=== PATIENT | male | born 1950 | race Caucasian/White ===

== ENCOUNTER → 2017-03-05 | Outpatient (CLI) | payer MEDICARE, BC | END | disposition home or self-care (01) | LOC: LABWHC1 08:37 | PROVIDERS: ATTEND Urology | DX: R97.20 Elevated prostate specific antigen [PSA] (principal) | CPT/HCPCS: 36415; 84153 ==

== ENCOUNTER 2020-01-18 19:30 | Inpatient (IN) | payer BC, MEDICARE ==
[2020-01-18] MEDS ORDERED: FAMOTIDINE 20 MG/2 ML VIAL IV STA (20:07)
[2020-01-18] MEDS ORDERED: ONDANSETRON 4 MG/2 ML VIAL IVP STA (20:07)
[2020-01-18] MEDS ORDERED: SODIUM CHLORIDE 0.9% 1,000 ML IV STA ×2 (20:07→21:04)
[2020-01-18] MEDS ORDERED: MORPHINE SULFATE 4 MG/ML SYRINGE IV STA (20:08)
--- NOTE | 2020-01-18 20:10 | ED ---
General Adult HPI - General Chief complaint: Abdominal Pain Stated complaint: Abd Pain Time Seen by Provider: 01/18/20 20:00 Source: patient, RN notes reviewed Mode of arrival: ambulatory Limitations: no limitations - History of Present Illness Initial comments: Patient is a pleasant 69-year-old male presenting to the emergency Department with complaints of abdominal discomfort. Onset of symptoms was a couple of hours ago after eating. Patient had a sob and potato chips. Patient had mild nausea. No vomiting. No constipation or diarrhea. No history of similar symptoms previously. Discomfort is moderate at this time. Discomfort is the epigastric and left upper quadrant. - Related Data Allergies Allergy/AdvReac Type Severity Reaction Status Date / Time No Known Allergies Allergy Verified 01/18/20 20:03 Review of Systems ROS Statement: Those systems with pertinent positive or pertinent negative responses have been documented in the HPI. ROS Other: All systems not noted in ROS Statement are negative. Constitutional: Denies: fever Eyes: Denies: eye pain ENT: Denies: ear pain Respiratory: Denies: cough Cardiovascular: Denies: chest pain Endocrine: Denies: fatigue Gastrointestinal: Reports: abdominal pain, nausea. Denies: vomiting, diarrhea Genitourinary: Denies: dysuria Musculoskeletal: Denies: back pain Skin: Denies: rash Neurological: Denies: weakness Past Medical History Past Medical History: Diabetes Mellitus, Hypertension Additional Past Medical History / Comment(s): gallstones History of Any Multi-Drug Resistant Organisms: None Reported Past Surgical History: No Surgical Hx Reported Past Psychological History: No Psychological Hx Reported Smoking Status: Former smoker Past Alcohol Use History: None Reported Past Drug Use History: None Reported General Exam Limitations: no limitations General appearance: alert, in no apparent distress Head exam: Present: normocephalic Eye exam: Present: normal appearance Neck exam: Present: normal inspection Respiratory exam: Present: normal lung sounds bilaterally Cardiovascular Exam: Present: regular rate, normal rhythm Expanded Peripheral pulses: 2+: Dorsalis Pedis (R), Dorsalis Pedis (L) GI/Abdominal exam: Present: soft, tenderness (Moderate tenderness epigastric), normal bowel sounds. Absent: distended, guarding, rebound, rigid, pulsatile mass Extremities exam: Present: normal inspection Neurological exam: Present: alert Psychiatric exam: Present: normal affect, normal mood Skin exam: Present: normal color Course Vital Signs 01/18/20 01/18/20 19:57 21:03 Temperature 97.8 F 97.1 F L Pulse Rate 83 95 Respiratory 18 18 Rate Blood Pressure 170/79 170/85 O2 Sat by Pulse 95 96 Oximetry - Reevaluation(s) Reevaluation #1: 01/18/20 21:05 Patient reevaluated and updated. Patient still complains of discomfort. Further pain medication ordered. Medical Decision Making - Medical Decision Making Case was discussed with Dr. Luevano with [facility], who will admit covering for Dr. Gilman, who admits for Dr. Carson. - Lab Data Result diagrams: 01/18/20 19:49 01/18/20 19:49 Lab Results 01/18/20 01/18/20 01/18/20 Range/Units 19:49 19:49 19:49 WBC 14.2 H (3.8-10.6) k/uL RBC 5.73 (4.30-5.90) m/uL Hgb 16.2 (13.0-17.5) gm/dL Hct 47.3 (39.0-53.0) % MCV 82.6 (80.0-100.0) fL MCH 28.2 (25.0-35.0) pg MCHC 34.2 (31.0-37.0) g/dL RDW 13.8 (11.5-15.5) % Plt Count 194 (150-450) k/uL Neutrophils % 79 % Lymphocytes % 13 % Monocytes % 4 % Eosinophils % 1 % Basophils % 0 % Neutrophils # 11.2 H (1.3-7.7) k/uL Lymphocytes # 1.9 (1.0-4.8) k/uL Monocytes # 0.6 (0-1.0) k/uL Eosinophils # 0.1 (0-0.7) k/uL Basophils # 0.0 (0-0.2) k/uL Sodium 134 L (137-145) mmol/L Potassium 4.1 (3.5-5.1) mmol/L Chloride 98 (98-107) mmol/L Carbon Dioxide 25 (22-30) mmol/L Anion Gap 11 mmol/L BUN 15 (9-20) mg/dL Creatinine 0.81 (0.66-1.25) mg/dL Est GFR (CKD-EPI)AfAm >90 (>60 ml/min/1.73 sqM) Est GFR (CKD-EPI)NonAf 89 (>60 ml/min/1.73 sqM) Glucose 264 H (74-99) mg/dL Plasma Lactic Acid Dario 2.6 H* (0.7-2.0) mmol/L Calcium 10.1 (8.4-10.2) mg/dL Total Bilirubin 2.1 H (0.2-1.3) mg/dL AST 113 H (17-59) U/L ALT 55 H (4-49) U/L Alkaline Phosphatase 169 H (38-126) U/L Total Protein 7.7 (6.3-8.2) g/dL Albumin 4.4 (3.5-5.0) g/dL Amylase 4915 H* (30-110) U/L Lipase >31343 H (23-300) U/L - Radiology Data Radiology results: report reviewed (Computed tomography scan of the area and pelvis shows fluid-filled stomach. Fat stranding and fluid around the pancreas consistent with pancreatitis. Lipoma on the right with displacement of urinary bladder.) Disposition Clinical Impression: Pancreatitis Disposition: ADMITTED IP TO THIS [facility] Condition: Serious Is patient prescribed a controlled substance at d/c from ED?: No
[2020-01-18 20:11] LABS: Basophils % (A) 0 %; Eosinophils # (A) 0.1 k/uL (0-0.7); Eosinophils % (A) 1 %; HCT 47.3 % (39.0-53.0); HGB 16.2 gm/dL (13.0-17.5); Lymphocytes # (A) 1.9 k/uL (1.0-4.8); Lymphocytes % (A) 13 %; MCH 28.2 pg (25.0-35.0); MCHC 34.2 g/dL (31.0-37.0); MCV 82.6 fL (80.0-100.0); Mean Platelet Volume 6.7; Monocytes # (A) 0.6 k/uL (0-1.0); Monocytes % (A) 4 %; Neutrophils # (A) 11.2 k/uL (1.3-7.7); Neutrophils % (A) 79 %; Platelet Count 194 k/uL (150-450); RBC 5.73 m/uL (4.30-5.90); RDW 13.8 % (11.5-15.5); WBC 14.2 k/uL (3.8-10.6)
[2020-01-18 20:20] LABS: ALT 55 U/L (4-49); AST 113 U/L (17-59); African American GFR (CKD) >90 (>60 ml/min/1.73 sqM); Albumin 4.4 g/dL (3.5-5.0); Alkaline Phosphatase 169 U/L (38-126); Anion Gap 11 mmol/L; Blood Urea Nitrogen 15 mg/dL (9-20); Calcium 10.1 mg/dL (8.4-10.2); Carbon Dioxide 25 mmol/L (22-30); Chloride 98 mmol/L (98-107); Glucose 264 mg/dL (74-99); Non-African American GFR(CKD) 89 (>60 ml/min/1.73 sqM); Potassium 4.1 mmol/L (3.5-5.1); Sodium 134 mmol/L (137-145); Total Bilirubin 2.1 mg/dL (0.2-1.3); Total Protein 7.7 g/dL (6.3-8.2)
[2020-01-18 20:45] LABS: Amylase 4915 U/L (30-110)
[2020-01-18] MEDS ORDERED: HYDROmorphone 1 MG/ML 1 ML SYRINGE IVP STA (21:04)
[2020-01-18] MEDS ORDERED: ONDANSETRON 4 MG/2 ML VIAL IVP PRN (21:34)
[2020-01-18] MEDS ORDERED: NALOXONE 0.4 MG/ML 1 ML VIAL IV PRN (21:34)
--- NOTE | 2020-01-18 21:43 | CT ---
EXAMINATION TYPE: CT abdomen pelvis w con DATE OF EXAM: 01/18/2020 COMPARISON: None HISTORY: abdominal pain CT DLP: 1715.6 mGycm Automated exposure control for dose reduction was used. CONTRAST: Performed with IV Contrast, patient injected with 100 mL of Isovue 300. There is mild subsegmental atelectasis at the lung bases. There is moderate-sized hiatal hernia. Hear t size is normal. There is no pericardial effusion. Liver shows no focal defect. Spleen is intact. Th ere is fluid and fat stranding around the pancreas. There is fluid in the left anterior pararenal spa ce. There are small calcified gallstones. Bile ducts are not dilated. Gallbladder has normal size. There is no adrenal mass. Kidneys show satisfactory contrast opacification. There is no hydronephrosi s. Ureters are not dilated. There is no retroperitoneal adenopathy. Bladder distends smoothly. There is some displacement of the urinary bladder to the left side apparently due to a lipoma in the pelvis that measures 12 x 7 cm. The prostate is enlarged and measures 7 cm. There is no inguinal hernia. Th ere is no free fluid in the pelvis. There is no mesenteric edema. There is no ascites or free air. There is no sign of a bowel obstructio n. Appendix appears normal. There is narrowing of L4-5 disc space. Lumbar vertebra have normal alignment. Bony pelvis is intact. There is evidence of old right acetabular fracture. Hip joints are otherwise intact. IMPRESSION: Mild subsegmental atelectasis at the lung bases. Hiatal hernia. Large fluid-filled stomach suggestive of gastroparesis. Fat stranding and fluid around the pancreas consistent with acute pancreatitis. 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
[2020-01-18] MEDS ORDERED: SODIUM CHLORIDE 0.9% 1,000 ML IV SCH (21:45)
[2020-01-18] MEDS: HEPARIN SODIUM,PORCINE 5,000 UNIT/ML 1 ML VIAL SQ SCH (23:08)
[2020-01-18 23:33] LABS: Appearance,Urine Clear (Clear); Bilirubin,Urine Negative (Negative); Blood,Urine Negative (Negative); Color,Urine Yellow; Glucose,Urine (UA) 4+ (Negative); Ketones,Urine Negative (Negative); Leukocyte Esterase,Urine Trace (Negative); Nitrite,Urine Positive (Negative); PH, Urine 5.5 (5.0-8.0); Protein,Urine Trace (Negative); RBC,Urine 1 /hpf (0-5); Specific Gravity,Urine 1.015 (1.001-1.035); Urobilinogen,Urine <2.0 mg/dL (<2.0); WBC,Urine 6 /hpf (0-5)
[2020-01-19] MEDS: LACTATED RINGERS 1,000 ML IV SCH ×6 (00:06→20:01)
[2020-01-19] MEDS: HYDROmorphone 1 MG/ML 1 ML SYRINGE IVP PRN ×5 (01:18→19:58)
--- NOTE | 2020-01-19 02:21 | P.HPIM ---
History of Present Illness H&P Date: 01/18/20 Chief Complaint: acute abd pain 69-year-old male with gallstone history, diabetes mellitus on oral hypoglycemic agents, hypertension Patient lives in assisted living facility Patient comes in due to sudden onset acute abdominal pain diffuse in nature mainly in the epigastric region described as sharp pain 10 out of 10 in severity started all of a sudden after eating dinner denies any fevers chills denies any nausea vomiting denies any diarrhea or GI bleeding denies any changes in his urinary habits. Patient denies any chest pain or trouble breathing. He reports immediately was transferred to our facility for evaluation. He said the only thing that is helping with pain as medications IV. He denies any history of pancreatitis. However he admits to history of g allstones that he never had surgery for it. In the ED he was found to have leukocytosis and lactic acidosis with elevated liver enzymes. Lipase was elevated. CT of the abdomen so was suggestive of g astroparesis and acute pancreatitis along with a large lipoma in the pelvis Review of Systems Pertinent positives as noted in HPI. All other systems were reviewed and are negative Past Medical History Past Medical History: Diabetes Mellitus, Hypertension Additional Past Medical History / Comment(s): gallstones History of Any Multi-Drug Resistant Organisms: None Reported Past Surgical History: No Surgical Hx Reported Past Psychological History: No Psychological Hx Reported Smoking Status: Former smoker Past Alcohol Use History: None Reported Past Drug Use History: None Reported Medications and Allergies Allergies Allergy/AdvReac Type Severity Reaction Status Date / Time No Known Allergies Allergy Verified 01/18/20 20:03 Physical Exam Vitals: Vital Signs Temp Pulse Resp BP Pulse Ox 01/18/20 21:03 97.1 F L 95 18 170/85 96 01/18/20 19:57 97.8 F 83 18 170/79 95 Intake and Output 01/18/20 01/18/20 01/18/20 06:59 14:59 22:59 Other: Weight 107.955 kg Constitutional: No acute distress, conversant, pleasant Eyes: Anicteric sclerae, moist conjunctiva, no lid-lag Pupils equal round reactive to light ENMT: NC/AT Oropharynx clear, no erythema, exudates Neck: Supple, FROM, no masses, or JVD No carotid bruits No thyromegaly Lungs: Clear to auscultation Clear to percussion Normal respiratory effort, no accessory muscle use Cardiovascular: Heart regular in rate and rhythm, No murmurs, gallops, or rubs No peripheral edema Abdominal: Soft diffusely tender abd with voluntary guarding Abdomen moving with respiration Normoactive bowel sounds No hepatomegaly, No splenomegaly No palpable mass No abdominal wall hernia noted Skin: Normal temperature, tone, texture, turgor No induration No subcutaneous nodules No rash, lesions No ulcers Extremities: No digital cyanosis No clubbing Pedal pulses intact and symmetrical Radial pulses intact and symmetrical No calf tenderness Psychiatric: Alert and oriented to person, place and time Appropriate affect fair judgement Neuro Muscles Strength 5/5 in all 4 extremities Sensation to light touch grossly present throughout Cranial nerves II-XII grossly intact No focal sensory deficits Lymphatics: no palpable cervical or supraclavicular , or inguinal lymph nodes Results CBC & Chem 7: 01/18/20 19:49 01/18/20 19:49 Labs: Abnormal Lab Results - Last 24 Hours (Table) 01/18/20 01/18/20 01/18/20 Range/Units 19:49 19:49 19:49 WBC 14.2 H (3.8-10.6) k/uL Neutrophils # 11.2 H (1.3-7.7) k/uL Sodium 134 L (137-145) mmol/L Glucose 264 H (74-99) mg/dL Plasma Lactic Acid Dario 2.6 H* (0.7-2.0) mmol/L Total Bilirubin 2.1 H (0.2-1.3) mg/dL AST 113 H (17-59) U/L ALT 55 H (4-49) U/L Alkaline Phosphatase 169 H (38-126) U/L Amylase 4915 H* (30-110) U/L Lipase >02445 H (23-300) U/L Assessment and Plan Assessment: 69 year old male with hypertension and DM, comes in with abd pain , sudden onset, found to have acute pancreatitis , suspected to be due to gall stones. anticipated length of stay > 2 midnights acute pancreatitis , suspected to be due to gall stone elevated liver enzymes check Liver US pain control with dilaudid aggressive IV fluid hydration gi consult NPO incidental finding of large lipoma in the pelvis chronic conditions gastroparesis DM , insulin sliding scale hypertension resume home meds CODE STATUS:full code DVT prophylaxis: hepairn sc tid Discussed with: Patient, ER Anticipated length of stay > than [address]: assisted living A total of 75 minutes was spent on the care of this complex patient more than 50% of the time was spent in counseling and care coordination.
[2020-01-19] MEDS: INSULIN ASPART (NovoLOG) 100 UNIT/ML VIAL SQ SCH ×4 (05:34→21:59)
[2020-01-19 06:35] LABS: Basophils % (A) 0 %; Eosinophils % (A) 0 %; HCT 46.3 % (39.0-53.0); HGB 14.8 gm/dL (13.0-17.5); Lymphocytes # (A) 0.9 k/uL (1.0-4.8); Lymphocytes % (A) 8 %; MCH 26.7 pg (25.0-35.0); MCHC 32.1 g/dL (31.0-37.0); MCV 83.3 fL (80.0-100.0); Monocytes # (A) 0.4 k/uL (0-1.0); Monocytes % (A) 4 %; Neutrophils # (A) 10.5 k/uL (1.3-7.7); Neutrophils % (A) 87 %; Platelet Count 190 k/uL (150-450); RBC 5.56 m/uL (4.30-5.90); WBC 12.1 k/uL (3.8-10.6)
[2020-01-19 06:45] LABS: ALT 45 U/L (4-49); AST 46 U/L (17-59); African American GFR (CKD) >90 (>60 ml/min/1.73 sqM); Albumin 3.8 g/dL (3.5-5.0); Alkaline Phosphatase 123 U/L (38-126); Anion Gap 8 mmol/L; Blood Urea Nitrogen 14 mg/dL (9-20); Calcium 9.2 mg/dL (8.4-10.2); Carbon Dioxide 24 mmol/L (22-30); Chloride 103 mmol/L (98-107); Glucose 229 mg/dL (74-99); Non-African American GFR(CKD) >90 (>60 ml/min/1.73 sqM); Potassium 4.4 mmol/L (3.5-5.1); Sodium 135 mmol/L (137-145); Total Bilirubin 1.7 mg/dL (0.2-1.3); Total Protein 6.8 g/dL (6.3-8.2)
[2020-01-19 07:03] LABS: Amylase 1327 U/L (30-110)
[2020-01-19 07:36] LABS: Glucose,Whole Blood 199 mg/dL (75-99)
--- NOTE | 2020-01-19 08:06 | US ---
EXAMINATION TYPE: US liver DATE OF EXAM: 01/19/2020 COMPARISON: CT from yesterday. CLINICAL HISTORY: elevated liver enzymes, pancreatitis . Abdominal pain, elevated liver enzymes, panc reatitis EXAM MEASUREMENTS: Liver Length: 20.0 cm Gallbladder Wall: 0.4 cm Right Kidney: 10.3 x 5.2 x 5.0 cm Technical limitations due to patient's body habitus and large amount of overlying bowel content Pancreas: Obscured by bowel gas Liver: only seen intercostally, enlarged Gallbladder: gallstone = 0.9cm, slightly thickened GB wall Evidence for sonographic Guerra's sign: no CBD: Obscured by overlying bowel gas Right Kidney: no evidence of hydronephrosis Suboptimal evaluation of pancreas on images saved with evidence of acute pancreatitis on recent CT. V isualized liver heterogeneously hyperechoic consistent with diffuse fatty infiltration and/or underly ing hepatocellular disease when correlating with CT. Suspect dependent calculus in gallbladder correl ating with CT. Perhaps mild gallbladder wall thickening. No pericholecystic fluid or sonographic Murp hy sign. Limited images right kidney show no gross hydronephrosis. IMPRESSION: Suboptimal study. Heterogeneous hyperechoic appearance of liver consistent with diffuse f atty infiltration and/or underlying hepatocellular disease. No suspicious mass or biliary dilatation. Findings correlate with CT.
[2020-01-19] MEDS: HEPARIN SODIUM,PORCINE 5,000 UNIT/ML 1 ML VIAL SQ SCH ×2 (08:32→15:31)
[2020-01-19] MEDS: PANTOPRAZOLE 40 MG/10 ML VIAL IV SCH (08:32)
[2020-01-19 12:18] LABS: Glucose,Whole Blood 178 mg/dL (75-99)
[2020-01-19 17:09] LABS: Glucose,Whole Blood 133 mg/dL (75-99)
[2020-01-19] MEDS ORDERED: DICLOFENAC SODIUM GEL 100 GM TUBE TOPICAL PRN (18:03)
--- NOTE | 2020-01-19 18:13 | P.PN ---
Subjective Progress Note Date: 01/19/20 (delayed charting seen at 1030) Principal diagnosis: abdominal pain Patient is a 69-year-old male with a history of gallstones on your estradiol, diabetes mellitus type 2 on oral hypo-and hyperglycemic, and hypertension who presented to the emergency department with complaints of sudden onset abdominal pain. On arrival his blood pressure is elevated at 170/79. Initial laboratory analysis showed white blood cell count of 14.2, sodium 134, glucose 264, lactic acid 2.6, bilirubin 2.1, AST 113, ALT 55, and alk phos 169. His lipase was greater than 20,000. Urinalysis was negative. CT abdomen and pelvis showed some segmental atelectasis at the lung bases, hiatal hernia, large fluid-filled stomach suggestive of gastroparesis, and fat stranding around the pancreas consistent with acute pancreatitis. He was diagnosed with acute pancreatitis. He was made nothing by mouth and started on IV fluids, antiemetics, and pain medications. He was admitted for further monitoring. Patient seen and examined at bedside. He reports that his abdominal pain is feeling better but is not completely resolved, no nausea, no vomiting, no diarrhea, no shortness of breath. He reports that he was taking medications to dissolve gallstones. He has no other complaints currently. Objective - Vital Signs Vital signs: Vital Signs Temp 99.3 F 01/19/20 15:00 Pulse 106 H 01/19/20 15:00 Resp 20 01/19/20 15:00 BP 163/86 01/19/20 15:00 Pulse Ox 90 L 01/19/20 15:00 Intake & Output 01/18/20 01/19/20 01/19/20 18:59 06:59 18:59 Weight 107.955 kg 107.955 kg - Exam General: ill appearing, mild distress, appears at stated age Derm: warm, dry Head: atraumatic, normocephalic, symmetric Eyes: EOMI, no lid lag, anicteric sclera Mouth: no lip lesion, mucus membranes moist Cardiovascular: S1S2 reg, no murmur, positive posterior tibial pulse bilateral, Lungs: CTA bilateral, no rhonchi, no rales , no accessory muscle use Abdominal: soft, + tender to palpation in the right upper quadrant and perumbilical, no guarding, no appreciable organomegaly Ext: no gross muscle atrophy, no edema, no contractures Neuro: CN II-XI grossly intact, no focal neuro deficits Psych: Alert, oriented, appropriate affect - Labs CBC & Chem 7: 01/19/20 05:42 01/19/20 05:42 Labs: Abnormal Lab Results - Last 24 Hours (Table) 01/18/20 01/18/20 01/18/20 Range/Units 19:49 19:49 19:49 WBC 14.2 H (3.8-10.6) k/uL Neutrophils # 11.2 H (1.3-7.7) k/uL Lymphocytes # (1.0-4.8) k/uL Sodium 134 L (137-145) mmol/L Glucose 264 H (74-99) mg/dL POC Glucose (mg/dL) (75-99) mg/dL Plasma Lactic Acid Dario 2.6 H* (0.7-2.0) mmol/L Total Bilirubin 2.1 H (0.2-1.3) mg/dL AST 113 H (17-59) U/L ALT 55 H (4-49) U/L Alkaline Phosphatase 169 H (38-126) U/L Amylase 4915 H* (30-110) U/L Lipase >51279 H (23-300) U/L Urine Protein (Negative) Urine Glucose (UA) (Negative) Ur Leukocyte Esterase (Negative) Urine WBC (0-5) /hpf 01/18/20 01/19/20 01/19/20 Range/Units 20:40 00:19 05:42 WBC 12.1 H (3.8-10.6) k/uL Neutrophils # 10.5 H (1.3-7.7) k/uL Lymphocytes # 0.9 L (1.0-4.8) k/uL Sodium (137-145) mmol/L Glucose (74-99) mg/dL POC Glucose (mg/dL) (75-99) mg/dL Plasma Lactic Acid Dario 2.4 H* (0.7-2.0) mmol/L Total Bilirubin (0.2-1.3) mg/dL AST (17-59) U/L ALT (4-49) U/L Alkaline Phosphatase (38-126) U/L Amylase (30-110) U/L Lipase (23-300) U/L Urine Protein Trace H (Negative) Urine Glucose (UA) 4+ H (Negative) Ur Leukocyte Esterase Trace H (Negative) Urine WBC 6 H (0-5) /hpf 01/19/20 01/19/20 01/19/20 Range/Units 05:42 05:42 07:33 WBC (3.8-10.6) k/uL Neutrophils # (1.3-7.7) k/uL Lymphocytes # (1.0-4.8) k/uL Sodium 135 L (137-145) mmol/L Glucose 229 H (74-99) mg/dL POC Glucose (mg/dL) 199 H (75-99) mg/dL Plasma Lactic Acid Dario 2.2 H* (0.7-2.0) mmol/L Total Bilirubin 1.7 H (0.2-1.3) mg/dL AST (17-59) U/L ALT (4-49) U/L Alkaline Phosphatase (38-126) U/L Amylase 1327 H* (30-110) U/L Lipase 81071 H (23-300) U/L Urine Protein (Negative) Urine Glucose (UA) (Negative) Ur Leukocyte Esterase (Negative) Urine WBC (0-5) /hpf 01/19/20 01/19/20 01/19/20 Range/Units 10:17 12:17 16:42 WBC (3.8-10.6) k/uL Neutrophils # (1.3-7.7) k/uL Lymphocytes # (1.0-4.8) k/uL Sodium (137-145) mmol/L Glucose (74-99) mg/dL POC Glucose (mg/dL) 178 H 133 H (75-99) mg/dL Plasma Lactic Acid Dario 2.8 H* (0.7-2.0) mmol/L Total Bilirubin (0.2-1.3) mg/dL AST (17-59) U/L ALT (4-49) U/L Alkaline Phosphatase (38-126) U/L Amylase (30-110) U/L Lipase (23-300) U/L Urine Protein (Negative) Urine Glucose (UA) (Negative) Ur Leukocyte Esterase (Negative) Urine WBC (0-5) /hpf Assessment and Plan Assessment: Acute pancreatitis - possible gallstone related - IVF, pain control, NPO, atiemetics - GI consult - Gallbladder US with 0.9 cm gallstone HTN - elevated on arrival - resume cozaar - hold HCTZ and can relate to pancreatitis - follow BP DM 2 - off metformin - SSI - Check A1C Lactic acidosis, resolved Transaminitis, resolved DVT prophylaxis: lovenox Discussed with: patient, nursing Anticipated discharge: 1-[address]: home with home health A total of 35 minutes was spent on the care of this complex patient more than 50% of the time was spent in counseling and care coordination.
[2020-01-19] MEDS: DOCUSATE 100 MG CAP PO SCH (19:57)
[2020-01-19] MEDS: LACTULOSE 20 GM/30 ML CUP PO SCH (19:57)
[2020-01-19] MEDS: LOSARTAN 50 MG TAB PO SCH (19:57)
[2020-01-19] MEDS: ATORVASTATIN 10 MG TAB PO SCH (19:57)
[2020-01-19] MEDS: FAMOTIDINE 20 MG TAB PO SCH (20:01)
[2020-01-19 20:35] LABS: Glucose,Whole Blood 159 mg/dL (75-99)
[2020-01-20] MEDS: HEPARIN SODIUM,PORCINE 5,000 UNIT/ML 1 ML VIAL SQ SCH ×3 (01:09→16:04)
[2020-01-20] MEDS: HYDROmorphone 1 MG/ML 1 ML SYRINGE IVP PRN ×4 (01:44→21:26)
[2020-01-20] MEDS: LACTATED RINGERS 1,000 ML IV SCH ×4 (01:46→21:20)
--- NOTE | 2020-01-20 03:54 | CONS ---
CONSULTATION DATE OF DICTATION: 01/19/2020 REASON FOR CONSULTATION: Acute pancreatitis. HISTORY OF PRESENT ILLNESS: The patient is a 69-year-old pleasant white male who was admitted to hospital with acute onset of severe epigastric pain that started yesterday morning. The pain was very intense continued to progressively get worse. Had some nausea but no vomiting. He came into the emergency room and was noted to have elevated amylase and lipase consistent for acute pancreatitis. The patient never has had these symptoms in the past. He noted to have known gallstones. He denies any alcohol use. This morning, he is feeling somewhat better, still has some abdominal pain but not as intense as yesterday. He denies any past history or peptic ulcer disease or recent NSAID use. No family history of pancreatitis. He did have a CT of the abdomen and pelvis done that showed changes consistent with acute pancreatitis and a gallstone . PAST MEDICAL HISTORY: Significant for diabetes mellitus, hypertension. PAST SURGICAL HISTORY: None. ALLERGIES: None. SOCIAL HISTORY: Former smoker. No alcohol use. FAMILY HISTORY: Unremarkable. MEDICATIONS: Medications at home include Voltaren gel, losartan hydrochlorothiazide, Tylenol, Actigall, Biofreeze, Colace, metformin, Zocor, lactulose, Pepcid. REVIEW OF SYSTEMS: CARDIOPULMONARY: He denies any chest pain or shortness of breath. GENITOURINARY: No dysuria or hematuria. MUSCULOSKELETAL: Does complain of some back pain. NEUROLOGY: Occasional headaches. ENT/VISION: Unremarkable. CONSTITUTIONAL: No recent weight loss. No fever, chills, night sweats. HEMATOLOGY: Unremarkable. PSYCHIATRIC: Unremarkable. ENDOCRINE: Unremarkable except diabetes mellitus. PHYSICAL EXAMINATION: He appears comfortable. No apparent distress. Vital signs are stable. Blood pressure is 163/86, pulse rate 106, temperature 99.3. HEENT EXAMINATION: Unremarkable. Conjunctivae pink. Sclerae anicteric. Oral cavity, no lesions. NECK: No JVD or lymph node enlargement. CHEST: Clear to auscultation. HEART: Regular rate and rhythm. ABDOMEN: Soft. There was mild tenderness on deep palpation in the epigastric area as well as in the right upper quadrant area. The rest of the abdomen was benign. Bowel sounds are positive. EXTREMITIES: No pedal edema. SKIN: No rashes. NEUROLOGIC: Alert and oriented x3. No focal deficits. LABS: Labs done. WBC 14.2, hemoglobin 16.2, platelets normal. Basic metabolic panel is within normal limits. Amylase was 4915 and lipase was more than 20,000. Today, amylase is down to 1327 and lipase is down to 10,484. At the time of admission to the hospital yesterday, bilirubin was 2.1. AST and ALT were 113 and 55 respectively. Alkaline phosphatase was 169. Today, T bilirubin is down to 1.7. AST and ALT have normalized and alkaline phosphatase was 123. The ultrasound of the abdomen showed 0.9 cm gallstone, mild thickening of the gallbladder wall. CBD was obscured by the overlying bowel gas. CT of the abdomen did show evidence of pancreatitis and fatty liver noted. IMPRESSION: 1. This is a patient who presents to the hospital with acute onset of severe epigastric pain that started yesterday morning and noted to have elevated amylase and lipase consistent with acute pancreatitis. He was also noted to have mild elevation of serum transaminases with a bilirubin of 2.1 in the setting of gallstones noted on ultrasound and CAT scan of the abdomen. Most likely we are dealing with acute biliary pancreatitis. 2. History of hypertension. 3. History of diabetes mellitus. RECOMMENDATION: 1. Continue with symptomatic and supportive care. 2. Aggressive IV hydration. 3. Pain medications as needed. 4. Since serum transaminases have normalized, no indication for an ERCP at the present time. 5. Consider obtaining surgical consultation for gallbladder surgery as it appears likely that we are dealing with gallstone pancreatitis. The plan was discussed with the patient. He is agreeable to it. Thank you for this consultation. MMODL / IJN: [id number] /
[2020-01-20 07:14] LABS: Glucose,Whole Blood 153 mg/dL (75-99)
[2020-01-20] MEDS ORDERED: B COMPLEX PO SCH (08:00)
[2020-01-20] MEDS ORDERED: [UNRECOGNIZED DRUG - OTHER] PO SCH (08:00)
[2020-01-20] MEDS: INSULIN ASPART (NovoLOG) 100 UNIT/ML VIAL SQ SCH ×4 (08:09→21:27)
[2020-01-20] MEDS: PANTOPRAZOLE 40 MG/10 ML VIAL IV SCH (08:10)
[2020-01-20] MEDS: LACTULOSE 20 GM/30 ML CUP PO SCH ×2 (08:10→21:19)
[2020-01-20] MEDS: FAMOTIDINE 20 MG TAB PO SCH (08:10)
[2020-01-20] MEDS: LOSARTAN 50 MG TAB PO SCH (08:10)
[2020-01-20 11:22] LABS: ALT 26 U/L (4-49); AST 27 U/L (17-59); African American GFR (CKD) >90 (>60 ml/min/1.73 sqM); Albumin 3.4 g/dL (3.5-5.0); Alkaline Phosphatase 96 U/L (38-126); Anion Gap 10 mmol/L; Blood Urea Nitrogen 11 mg/dL (9-20); Calcium 8.6 mg/dL (8.4-10.2); Carbon Dioxide 24 mmol/L (22-30); Chloride 103 mmol/L (98-107); Glucose 149 mg/dL (74-99); Non-African American GFR(CKD) >90 (>60 ml/min/1.73 sqM); Potassium 3.6 mmol/L (3.5-5.1); Sodium 137 mmol/L (137-145); Total Bilirubin 3.5 mg/dL (0.2-1.3); Total Protein 6.5 g/dL (6.3-8.2)
[2020-01-20 11:23] LABS: Amylase 303 U/L (30-110)
[2020-01-20 11:54] LABS: Glucose,Whole Blood 132 mg/dL (75-99)
--- NOTE | 2020-01-20 14:18 | P.GSCN ---
<Breana Hubbard - Last Filed: 01/20/20 14:11> History of Present Illness Consult date: 01/20/20 Reason for Consult: Gallstone pancreatitis Requesting physician: Helder Gilman History of present illness: CHIEF COMPLAINT: Gallstone pancreatitis HISTORY OF PRESENT ILLNESS: 69-year-old male who is currently admitted to the hospital secondary to pancreatitis. General surgery was consulted for further evaluation. Patient examined at the bedside with Dr. Ledezma. Patient currently denies abdominal pain. Denies nausea or vomiting. Patient reports a known history of gallstones and states he had an issue with gallstone pancreatitis in 2008. PAST MEDICAL HISTORY: See list. PAST SURGICAL HISTORY: See list. MEDICATIONS: See list. ALLERGIES: See list. SOCIAL HISTORY: No illicit drug use. REVIEW OF SYSTEMS: CONSTITUTIONAL: Denies fever or chills. HEENT: Denies blurred vision, vision changes, or eye pain. Denies hemoptysis ENDOCRINE: Denies heat or cold intolerance. History of diabetes mellitus CARDIOVASCULAR: Denies chest pain or pressure. History of hypertension RESPIRATORY: No shortness of breath. GASTROINTESTINAL: See HPI for pertinent findings NEURO: Denies history of seizures. PSYCH: No depression or suicidal ideation HEMATOLOGIC: Denies bleeding disorders. LYMPHATIC: The patient denies any lumps and bumps around the neck. GENITOURINARY: Denies any blood in urine or increased urinary frequency. MUSCULOSKELETAL: Denies myalgias. Denies joint swelling. Denies decreased range of motion beyond patients baseline. SKIN: Denies pruitis. Denies rash. PHYSICAL EXAM: VITAL SIGNS: Reviewed GENERAL: Well-developed in no acute distress. HEENT: No sclera icterus. Extraocular movements grossly intact. Moist buccal mucosa. Head is atraumatic, normocephalic. Hears conversational speech. No nasal drainage. NECK: Supple without lymphadenopathy. CHEST: Non-labored respirations and equal bilateral excursions. CARDIOVASCULAR: Regular rate with regular rhythm. Palpable 2+ radial pulses. ABDOMEN: Soft. Nondistended. Nontender. MUSCULOSKELETAL: No clubbing or cyanosis. NEUROLOGIC: No focal or lateralizing signs. Cranial nerves II through XII grossly intact. PSYCH: Appropriate affect. Alert and oriented to person, place and time. SKIN: Well perfused. Good skin turgor. LABORATORY DATA: WBC 12.1. Hemoglobin 14.8. Platelet count 190. Bilirubin today 3.5. Up from 1.7 yesterday. AST 27. ALT 26. Amylase 303. Lipase 738. IMAGING: Liver ultrasound: Heterogeneous hyperechoic appearance of the liver consistent with diffuse fatty infiltration and/or underlying hepatocellular disease. No suspicious mass or biliary dilation. Gallstones measuring 0.9 cm. Slightly thickened gallbladder wall. ASSESSMENT: 1. Abdominal pain 2. Gallstone pancreatitis 3. Hyperbilirubinemia PLAN: Patient with increased bilirubin levels today. Await GI evaluation. May require ERCP prior to any surgical intervention Will undergo robotic cholecystectomy when medically stable and pending GI recommendations Nurse practitioner note has been reviewed by physician. Signing provider agrees with the documented findings, assessment, and plan of care. Past Medical History Past Medical History: Diabetes Mellitus, Hypertension Additional Past Medical History / Comment(s): gallstones History of Any Multi-Drug Resistant Organisms: None Reported Past Surgical History: Hernia Repair Past Anesthesia/Blood Transfusion Reactions: No Reported Reaction Past Psychological History: No Psychological Hx Reported Smoking Status: Former smoker Past Alcohol Use History: Heavy Additional Past Alcohol Use History / Comment(s): used to drink 1L daily whiskey, quit 2009. now drinks a beer a week Past Drug Use History: None Reported - Past Family History Father Family Medical History: Cancer Medications and Allergies Home Medications Medication Instructions Recorded Confirmed Type Acetaminophen [Tylenol] 500 - 1,000 mg PO Q6H PRN 01/19/20 01/19/20 History B Complex W/C 1 tab PO DAILY@0800 01/19/20 01/19/20 History Diclofenac Sodium [Voltaren Gel] 1 applic TOPICAL DAILY PRN 01/19/20 01/19/20 History Docusate [Colace] 200 mg PO HS@199901/19/20 01/19/20 History Famotidine [Pepcid] 20 mg PO DAILY@79901/19/20 01/19/20 History Ibuprofen [Motrin] 600 mg PO TID PRN 01/19/20 01/19/20 History Lactulose 10 gm PO BID@0800,199901/19/20 01/19/20 History Losartan-Hctz 50-12.5 mg [Hyzaar 1 tab PO DAILY@0800 01/19/20 01/19/20 History 50-12.5] Menthol [Biofreeze] 1 applic TOPICAL QID PRN 01/19/20 01/19/20 History Simvastatin [Zocor] 20 mg PO HS@2000 01/19/20 01/19/20 History Ursodiol [Actigall] 300 mg PO TID-W/MEALS 01/19/20 01/19/20 History metFORMIN HCL 500 mg PO BID@0800,1700 01/19/20 01/19/20 History Allergies Allergy/AdvReac Type Severity Reaction Status Date / Time No Known Allergies Allergy Verified 01/19/20 10:56 Surgical - Exam Vital Signs Temp Pulse Resp BP Pulse Ox 97.8 F 83 18 170/79 95 01/18/20 19:57 01/18/20 19:57 01/18/20 19:57 01/18/20 19:57 01/18/20 19:57 Results - Labs 01/19/20 05:42 01/20/20 10:25 Abnormal Lab Results - Last 24 Hours (Table) 01/19/20 01/19/20 01/20/20 Range/Units 16:42 20:34 06:56 Glucose (74-99) mg/dL POC Glucose (mg/dL) 133 H 159 H 153 H (75-99) mg/dL Total Bilirubin (0.2-1.3) mg/dL Albumin (3.5-5.0) g/dL Amylase (30-110) U/L Lipase (23-300) U/L 01/20/20 01/20/20 Range/Units 10:25 11:50 Glucose 149 H (74-99) mg/dL POC Glucose (mg/dL) 132 H (75-99) mg/dL Total Bilirubin 3.5 H (0.2-1.3) mg/dL Albumin 3.4 L (3.5-5.0) g/dL Amylase 303 H* (30-110) U/L Lipase 738 H (23-300) U/L Diabetes panel 01/20/20 Range/Units 10:25 Sodium 137 (137-145) mmol/L Potassium 3.6 (3.5-5.1) mmol/L Chloride 103 (98-107) mmol/L Carbon Dioxide 24 (22-30) mmol/L BUN 11 (9-20) mg/dL Creatinine 0.68 (0.66-1.25) mg/dL Glucose 149 H (74-99) mg/dL Calcium 8.6 (8.4-10.2) mg/dL AST 27 (17-59) U/L ALT 26 (4-49) U/L Alkaline Phosphatase 96 (38-126) U/L Total Protein 6.5 (6.3-8.2) g/dL Albumin 3.4 L (3.5-5.0) g/dL Calcium panel 01/20/20 Range/Units 10:25 Calcium 8.6 (8.4-10.2) mg/dL Albumin 3.4 L (3.5-5.0) g/dL Pituitary panel 01/20/20 Range/Units 10:25 Sodium 137 (137-145) mmol/L Potassium 3.6 (3.5-5.1) mmol/L Chloride 103 (98-107) mmol/L Carbon Dioxide 24 (22-30) mmol/L BUN 11 (9-20) mg/dL Creatinine 0.68 (0.66-1.25) mg/dL Glucose 149 H (74-99) mg/dL Calcium 8.6 (8.4-10.2) mg/dL Adrenal panel 01/20/20 Range/Units 10:25 Sodium 137 (137-145) mmol/L Potassium 3.6 (3.5-5.1) mmol/L Chloride 103 (98-107) mmol/L Carbon Dioxide 24 (22-30) mmol/L BUN 11 (9-20) mg/dL Creatinine 0.68 (0.66-1.25) mg/dL Glucose 149 H (74-99) mg/dL Calcium 8.6 (8.4-10.2) mg/dL Total Bilirubin 3.5 H (0.2-1.3) mg/dL AST 27 (17-59) U/L ALT 26 (4-49) U/L Alkaline Phosphatase 96 (38-126) U/L Total Protein 6.5 (6.3-8.2) g/dL Albumin 3.4 L (3.5-5.0) g/dL <Ca Ledezma - Last Filed: 01/22/20 11:45> History of Present Illness History of present illness: Patient seen and evaluated with [facility]. Agree with above. HISTORY OF PRESENT ILLNESS: The patient is a 69 year old male has been hospitalized for at least 2 days for pancreatitis. Gastroenterology team has been following. An ultrasound demonstrated gallstones. Gen. surgery was consulted. He reports history of gallstones well over 10 years. He also reports that his sister of gallstone pancreatitis as well. At the time of my assessment, patient denies abdominal pain. He did present to the emergency room with acute epigastric abdominal pain after eating a sandwich and potato chips. On presentation, WBC was elevated over 14,000. Lipase was elevated over 20,000. Liver enzymes on presentation were also elevated. He was admitted secondary to pancreatitis. PAST MEDICAL HISTORY: See list. PAST SURGICAL HISTORY: See list. MEDICATIONS: See list. ALLERGIES: See list. SOCIAL HISTORY: See list. FAMILY HISTORY: See list. REVIEW OF ORGAN SYSTEMS: CONSTITUTIONAL: No fevers or chills. . EYES: Denies any trouble with vision. No glasses. HEENT: No difficulties with hearing. No nosebleeds. No difficulty swallowing. RESPIRATORY: Denies pneumonia. Denies any troubles with breathing or dyspnea on exertion. CARDIOVASCULAR: Denies any chest pain, palpitations, or recent heart attacks. GASTROINTESTINAL: No reports of blood in the stools. History of gallstones and takes Actigall. Past history of alcoholism. GENITOURINARY: Denies any blood in urine or increased urinary frequency. NEUROLOGICAL: Denies any numbness or tingling along the distal extremities. No seizure disorders or headaches. MUSCULOSKELETAL: Has occasional back pain, stiffness or joint arthritis. SKIN: No current skin cancer. No rash. PSYCHIATRIC: Denies current depression or suicidal thoughts. ENDOCRINE: Denies current thyroid disorders. Has blood sugar glucose intolerance. HEME/LYMPHATIC: Denies any lumps and bumps around the neck. No recent deep ve nous thrombosis. ALLERGY/IMMUNOLOGY: No immunoglobulin therapy. No immune deficiencies. BREAST: Denies current breast lumps, pain or nipple discharge. PHYSICAL EXAM: VITALS: Reviewed CONSTITUTIONAL: Well developed and in no acute distress. EYES: Conjuctivae without sclera icterus. Pupils are equally round and reactive to light. Extraocular movements grossly intact. HEAD, EARS, NOSE, THROAT: Moist buccal mucosa. Head is atraumatic, normocephalic. Hears conversational speech. No nasal drainage. NECK: Supple. No JV distention. No thyroidomegaly. RESPIRATORY: Non-labored respirations and equal bilateral excursions. No gross wheezes. CARDIOVASCULAR: Extremities without moderate edema. Palpable 2+ radial pulses. ABDOMEN: Soft. Non-tender. Nondistended. LYMPH: No neck lymphadenopathy. No axillary lymphadenopathy. MUSCULOSKELETAL: Nail and fingers with good capillary refill. SKIN: Warm and well perfused with good skin turgor. NEUROLOGIC: Cranial nerves II through XII grossly intact. No focal or lateralizing signs. PSYCH: Appropriate affect. Alert and oriented to person, place and time. Displays appropriate insight. CLINCAL LABS: Reviewed labs on presentation include WBC 14,200. Total bilirubin elevated at 2.1. AST elevated 113, ALT 55, alkaline phosphatase 169, amylase 4915, and lipase of over 20,000 IMAGING: Independently reviewed CT of the abdomen pelvis with large incarcerated diaphragmatic hiatal hernia of the midline involving the proximal stomach. Large dilated fluid-filled stomach. Gallbladder with approximately 1 cm stone along the infundibulum of the gallbladder. Inflammatory changes along the body and tail of the pancreas. Fat-containing umbilical hernia, 1 cm. Redundant sigmoid colon with diverticulosis without diverticulitis. Large right pelvic tumor by taking right sidewall of the gallbladder with displacement. This is my independent interpretation. RADIOLOGY: Report reviewed. CT of the abdomen and pelvis confirms 12 x 7 cm lipoma of the pelvis displacing the bladder. Large 7 cm prostate also identified. Fat stranding and fluid around pancreas also confirmed. Additionally confirms large hiatal hernia. ASSESSMENT: 1. 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 Enlarged prostate 4. Past history of alcoholism PLAN: 1. Currently, patient's been developed by GI with recommendations of MRCP for elevated persistent total bilirubin levels. 2. His LFTs including lipase has been resolving. At some point, will need cholecystectomy for symptomatic gallstones 3. Awaiting GI recommendations for possible ERCP if needed. Thank you for this kind consultation. Surgical - Exam Vital Signs Temp Pulse Resp BP Pulse Ox 97.8 F 83 18 170/79 95 01/18/20 19:57 01/18/20 19:57 01/18/20 19:57 01/18/20 19:57 01/18/20 19:57 Results - Labs 01/22/20 07:24 01/22/20 07:24 Abnormal Lab Results - Last 24 Hours (Table) 01/21/20 01/21/20 01/22/20 Range/Units 17:03 20:29 06:50 Hgb (13.0-17.5) gm/dL Hct (39.0-53.0) % Glucose (74-99) mg/dL POC Glucose (mg/dL) 168 H 186 H 172 H (75-99) mg/dL Calcium (8.4-10.2) mg/dL Total Bilirubin (0.2-1.3) mg/dL Total Protein (6.3-8.2) g/dL Albumin (3.5-5.0) g/dL 01/22/20 01/22/20 Range/Units 07:24 07:24 Hgb 12.7 L (13.0-17.5) gm/dL Hct 38.2 L (39.0-53.0) % Glucose 152 H (74-99) mg/dL POC Glucose (mg/dL) (75-99) mg/dL Calcium 7.5 L (8.4-10.2) mg/dL Total Bilirubin 1.7 H (0.2-1.3) mg/dL Total Protein 5.3 L (6.3-8.2) g/dL Albumin 2.6 L (3.5-5.0) g/dL Microbiology - Last 24 Hours (Table) 01/21/20 08:12 Blood Culture - Preliminary Blood No Growth after 24 hours Diabetes panel 01/22/20 Range/Units 07:24 Sodium 137 (137-145) mmol/L Potassium 3.8 (3.5-5.1) mmol/L Chloride 104 (98-107) mmol/L Carbon Dioxide 27 (22-30) mmol/L BUN 16 (9-20) mg/dL Creatinine 0.79 (0.66-1.25) mg/dL Glucose 152 H (74-99) mg/dL Calcium 7.5 L (8.4-10.2) mg/dL AST 30 (17-59) U/L ALT 29 (4-49) U/L Alkaline Phosphatase 124 (38-126) U/L Total Protein 5.3 L (6.3-8.2) g/dL Albumin 2.6 L (3.5-5.0) g/dL Calcium panel 01/22/20 Range/Units 07:24 Calcium 7.5 L (8.4-10.2) mg/dL Albumin 2.6 L (3.5-5.0) g/dL Pituitary panel 01/22/20 Range/Units 07:24 Sodium 137 (137-145) mmol/L Potassium 3.8 (3.5-5.1) mmol/L Chloride 104 (98-107) mmol/L Carbon Dioxide 27 (22-30) mmol/L BUN 16 (9-20) mg/dL Creatinine 0.79 (0.66-1.25) mg/dL Glucose 152 H (74-99) mg/dL Calcium 7.5 L (8.4-10.2) mg/dL Adrenal panel 01/22/20 Range/Units 07:24 Sodium 137 (137-145) mmol/L Potassium 3.8 (3.5-5.1) mmol/L Chloride 104 (98-107) mmol/L Carbon Dioxide 27 (22-30) mmol/L BUN 16 (9-20) mg/dL Creatinine 0.79 (0.66-1.25) mg/dL Glucose 152 H (74-99) mg/dL Calcium 7.5 L (8.4-10.2) mg/dL Total Bilirubin 1.7 H (0.2-1.3) mg/dL AST 30 (17-59) U/L ALT 29 (4-49) U/L Alkaline Phosphatase 124 (38-126) U/L Total Protein 5.3 L (6.3-8.2) g/dL Albumin 2.6 L (3.5-5.0) g/dL Assessment and Plan (1) Acute gallstone pancreatitis Current Visit: Yes Status: Acute Code(s): K85.10 - BILIARY ACUTE PANCREATITIS WITHOUT NECROSIS OR INFECTION SNOMED Code(s): 690125209 (2) Pelvic neoplasm Current Visit: Yes Status: Acute Code(s): D49.89 - NEOPLASM OF UNSPECIFIED BEHAVIOR OF OTHER SPECIFIED SITES SNOMED Code(s): 560413157 (3) Enlarged prostate Current Visit: Yes Status: Acute Code(s): N40.0 - BENIGN PROSTATIC HYPERPLASIA WITHOUT LOWER URINRY TRACT SYMP SNOMED Code(s): 965602572 (4) History of alcoholism Current Visit: Yes Status: Acute Code(s): F10.21 - ALCOHOL DEPENDENCE, IN REMISSION SNOMED Code(s): 616900990 (5) Family history of gallbladder disease Current Visit: Yes Status: Acute Code(s): Z83.79 - FAMILY HISTORY OF OTHER DISEASES OF THE DIGESTIVE SYSTEM SNOMED Code(s): 122645926 (6) Diabetes type 2, controlled Current Visit: Yes Status: Acute Code(s): E11.9 - TYPE 2 DIABETES MELLITUS WITHOUT COMPLICATIONS SNOMED Code(s): 72933630 (7) Hypertensive heart disease Current Visit: Yes Status: Acute Code(s): I11.9 - HYPERTENSIVE HEART DISEASE WITHOUT HEART FAILURE SNOMED Code(s): 03613924
[2020-01-20 17:28] LABS: Glucose,Whole Blood 152 mg/dL (75-99)
[2020-01-20 20:34] LABS: Glucose,Whole Blood 179 mg/dL (75-99)
[2020-01-20] MEDS: ATORVASTATIN 10 MG TAB PO SCH (21:19)
[2020-01-20] MEDS: DOCUSATE 100 MG CAP PO SCH (21:19)
--- NOTE | 2020-01-20 21:42 | P.PN ---
Progress Note - Text Progress Note Date: 01/20/20 Presenting complaint: Abdominal pain Interval history: Patient admitted with acute gallstone pancreatitis. Today-laying in bed. Clear liquids. Decrease abdominal pain. No nausea vomiting. No fever no chills. Review of systems: Was done for constitutional, cardiovascular, GI, pulmonary. relevant finding as above Active Medications Atorvastatin Calcium (Lipitor) 10 mg PO HS@1999 [facility] Last Admin: 01/20/20 21:19 Dose: 10 mg Documented by: Diclofenac Sodium (Voltaren Gel) 2 gm TOPICAL DAILY PRN PRN Reason: Pain Docusate Sodium (Colace) 200 mg PO HS@1999 [facility] Last Admin: 01/20/20 21:19 Dose: 200 mg Documented by: Famotidine (Pepcid) 20 mg PO DAILY@08 [facility] Last Admin: 01/20/20 08:10 Dose: 20 mg Documented by: Heparin Sodium (Porcine) (Heparin) 5,000 unit SQ Q8HR [facility] Last Admin: 01/20/20 16:04 Dose: 5,000 unit Documented by: Hydromorphone HCl (Dilaudid) 1 mg IVP Q3HR PRN PRN Reason: Severe Pain Last Admin: 01/20/20 21:26 Dose: 1 mg Documented by: Lactated Ringer's (Lactated Ringers) 1,000 mls @ 200 mls/hr IV .Q5H [facility] Last Admin: 01/20/20 21:20 Dose: 200 mls/hr Documented by: Insulin Aspart (Novolog) 0 unit SQ [facility]; Protocol Last Admin: 01/20/20 21:27 Dose: 3 unit Documented by: Lactulose (Cephulac) 10 gm PO BID@799,1999 [facility] Last Admin: 01/20/20 21:19 Dose: 10 gm Documented by: Losartan Potassium (Cozaar) 50 mg PO DAILY [facility] Last Admin: 01/20/20 08:10 Dose: 50 mg Documented by: Naloxone HCl (Narcan) 0.2 mg IV Q2M PRN PRN Reason: Opioid Reversal Ondansetron HCl (Zofran) 4 mg IVP Q8HR PRN PRN Reason: Nausea And Vomiting Last Admin: 01/20/20 14:50 Dose: 4 mg Documented by: Pantoprazole Sodium (Protonix) 40 mg IV DAILY [facility] Last Admin: 01/20/20 08:10 Dose: 40 mg Documented by: On examination: VITAL SIGNS: 98.3, and 97, 16, 155/88, and 3% on room air GENERAL APPEARANCE: . BMI 31.4, laying in bed, not in distress HEENT: Normal external appearance of nose and ear. Oral cavity normal EYES: Pupils equal. Conjunctiva normal. NECK: JVD not raised. Mass not palpable. RESPIRATORY: Respiratory effort normal. Lungs clear to auscultation. CARDIOVASCULAR: First and second sounds normal. No edema. ABDOMEN: Soft. Liver and spleen not palpable. Epigastric tenderness. No guarding no rigidity. No mass palpable. PSYCHIATRY: Alert and oriented x3. Mood and affect normal. Investigations: Potassium 3.6 Amylase-303, lipase 738 Previous testing: Abdominal ultrasound-fatty infiltration of the liver, gallbladder wall thickening, gallstones Computed tomography scan of the abdomen-stranding of the pancreas suggestive acute pancreatitis, enlarged prostate, Assessment: -Acute severe gallstone pancreatitis with clinical improvement. Patient also had a history of heavy alcohol use in the past. -Diabetes mellitus type 2 -Alcoholic fatty liver disease with a prior history of heavy alcoholism -Essential hypertension -Hyperlipidemia -Gallstones -Obesity BMI 31.4 Plan: Care was discussed with the patient. Started on clear liquids. general surgery was consulted. Continue with IV fluids.
--- NOTE | 2020-01-20 22:02 | PN ---
PROGRESS NOTE DATE OF DICTATION: 01/20/2020 This patient is a 69-year-old pleasant white male admitted to the hospital with acute biliary pancreatitis. He is doing much better. He still has some epigastric discomfort, but overall his pain is gradually improving. Still requiring pain medications every 6-8 hours. He reports no nausea, vomiting. Complains of some abdominal bloating. PHYSICAL EXAMINATION: Appears comfortable. VITAL SIGNS: Stable. Blood pressure 164/93, pulse rate 94, temperature 98.2. HEENT examination unremarkable. Conjunctivae pink. Sclerae anicteric. Oral cavity no lesions. NECK: No JVD or lymph node enlargement. CHEST: Clear to auscultation. HEART: Regular rate and rhythm. ABDOMEN: Soft. Very mild tenderness in the epigastric area. Appears slightly distended. EXTREMITIES: No pedal edema. SKIN: No rashes. NEUROLOGIC: Alert and oriented x3. No focal deficits. LABS: Labs from today show WBC 12.1, hemoglobin 14.8, platelets normal. Amylase is down to 303. Lipase is down to 738. AST and ALT are normal. T-bilirubin is slightly elevated at 3.5. IMPRESSION: Acute biliary pancreatitis. Patient was noted to have mild elevation of serum transaminases and bilirubin up to 2.1. Serum transaminases have normalized, but bilirubin went up to 3.5 today. Amylase and lipase have significantly improved. It is likely the patient has passed a CBD stone. However, since his bilirubin is slightly elevated, will consider an MRCP to rule out choledocholithiasis. RECOMMENDATIONS: 1. Clear liquid diet. 2. Schedule for MRCP tomorrow. 3. Repeat labs in the morning. 4. Continue symptomatic and supportive care. 5. Will follow with you closely. Thank you for this consultation. MMODL / IJN: [id number] /
[2020-01-21] MEDS: HEPARIN SODIUM,PORCINE 5,000 UNIT/ML 1 ML VIAL SQ SCH ×3 (00:04→15:48)
[2020-01-21] MEDS: HYDROmorphone 1 MG/ML 1 ML SYRINGE IVP PRN ×2 (01:39→05:27)
[2020-01-21] MEDS: LACTATED RINGERS 1,000 ML IV SCH ×6 (01:42→21:07)
[2020-01-21 07:54] LABS: Glucose,Whole Blood 152 mg/dL (75-99)
[2020-01-21] MEDS: INSULIN ASPART (NovoLOG) 100 UNIT/ML VIAL SQ SCH ×4 (08:01→21:11)
[2020-01-21] MEDS: LACTULOSE 20 GM/30 ML CUP PO SCH ×2 (08:02→21:06)
[2020-01-21] MEDS: PANTOPRAZOLE 40 MG/10 ML VIAL IV SCH (08:02)
[2020-01-21] MEDS: FAMOTIDINE 20 MG TAB PO SCH (08:03)
[2020-01-21] MEDS: LOSARTAN 50 MG TAB PO SCH (08:03)
[2020-01-21 09:17] LABS: ALT 24 U/L (4-49); AST 29 U/L (17-59); African American GFR (CKD) >90 (>60 ml/min/1.73 sqM); Albumin 2.9 g/dL (3.5-5.0); Alkaline Phosphatase 109 U/L (38-126); Anion Gap 7 mmol/L; Blood Urea Nitrogen 11 mg/dL (9-20); Carbon Dioxide 25 mmol/L (22-30); Chloride 104 mmol/L (98-107); Glucose 145 mg/dL (74-99); Non-African American GFR(CKD) >90 (>60 ml/min/1.73 sqM); Potassium 3.6 mmol/L (3.5-5.1); Sodium 136 mmol/L (137-145); Total Bilirubin 3.3 mg/dL (0.2-1.3); Total Protein 5.7 g/dL (6.3-8.2)
[2020-01-21] MEDS ORDERED: INDOCYANINE GREEN 25 MG VIAL IV STA (09:39)
[2020-01-21] MEDS ORDERED: TAMSULOSIN 0.4 MG CAP.ER.24H PO STA (09:40)
--- NOTE | 2020-01-21 09:40 | P.HPADDEND ---
H&P Addendum H&P Addendum Date: 01/21/20 Patient has symptomatic gallstones at the infundibulum. Total bilirubin slowly trending downward. We'll proceed with robotic cholecystectomy for symptomatic cholelithiasis. 12-lead EKG obtained.
[2020-01-21 10:05] LABS: Glucose,Whole Blood 148 mg/dL (75-99)
[2020-01-21] MEDS ORDERED: ACETAMINOPHEN TAB 500 MG TAB PO ONE (10:10)
[2020-01-21] MEDS ORDERED: DEXAMETHASONE SOD PHOSPHATE 10 MG/ML 1 ML VIAL IV ONE (10:11)
[2020-01-21] MEDS ORDERED: ONDANSETRON 4 MG/2 ML VIAL IVP ONE (10:12)
[2020-01-21] MEDS ORDERED: TAMSULOSIN 0.4 MG CAP.ER.24H PO ONE (10:13)
[2020-01-21 10:17] VITALS: BMI 31.4
[2020-01-21] MEDS ORDERED: NEOSTIGMINE 1 MG/ML 10 ML VIAL ONE (10:18)
[2020-01-21] MEDS ORDERED: fentaNYL (PF) 50 MCG/ML 2 ML AMP ONE (10:18)
[2020-01-21] MEDS ORDERED: MIDAZOLAM 2 MG/2 ML VIAL ONE (10:18)
[2020-01-21] MEDS ORDERED: GLYCOPYRROLATE 0.2 MG/ML 2 ML VIAL ONE (10:18)
[2020-01-21] MEDS ORDERED: HYDROmorphone (PF) 1 MG/ML ONE (10:18)
[2020-01-21] MEDS ORDERED: LABETALOL 5 MG/ML VIAL MDV ONE (10:18)
[2020-01-21] MEDS ORDERED: ROCURONIUM BROMIDE 10 MG/ML 5 ML VIAL IV ONE (10:18)
[2020-01-21] MEDS ORDERED: LACTATED RINGERS 1,000 ML IV ONE ×3 (10:18→14:11)
[2020-01-21] MEDS ORDERED: SUCCINYLCHOLINE CHLORIDE 100 MG/5 ML SYR IV ONE (10:18)
[2020-01-21] MEDS ORDERED: INDOCYANINE GREEN 25 MG VIAL IV ONE (10:18)
[2020-01-21] MEDS ORDERED: PROPOFOL 10 MG/ML 20 ML VIAL IV ONE (10:18)
[2020-01-21] MEDS ORDERED: LIDOCAINE 1% INJ 10MG/ML (20 ML MDV) ONE (10:18)
[2020-01-21] MEDS ORDERED: BUPIVACAINE (PF) 0.25% 30 ML VIAL SQ ONE (10:42)
[2020-01-21] MEDS: HYDROmorphone 1 MG/ML 1 ML SYRINGE IVP ONE ×2 (13:17→13:45)
[2020-01-21] MEDS ORDERED: NALOXONE 0.4 MG/ML 1 ML VIAL IV PRN (13:17)
[2020-01-21] MEDS ORDERED: SODIUM CHLORIDE 0.9% 1,000 ML IV ONE (13:18)
[2020-01-21] MEDS: HYDROmorphone 0.5 MG/0.5 ML SYRINGE IVP ONE ×2 (13:23→13:51)
--- NOTE | 2020-01-21 13:56 | P.OP ---
Date of Procedure: 01/21/20 Description of Procedure: SURGEON: CYNDI CAVANAUGH MD PREOPERATIVE DIAGNOSES: 1. Gallstone pancreatitis 2. Hyperbilirubinemia 3. Diabetes, type II [id number] 4. Hypertensive heart disease 5. Hyperlipidemia POSTOPERATIVE DIAGNOSES: 1. Gallstone pancreatitis 2. Hyperbilirubinemia 3. Diabetes, type II [id number] 4. Hypertensive heart disease 5. Hyperlipidemia 6. Acute cholecystitis due to cystic duct obstruction 7. Ileus 8. Abdominal ascites OPERATION: 1. Robotic-assisted da Kymberly Xi laparoscopic cholecystectomy, multiport with FIREFLY 2. Robotic-assisted da Kymberly Xi laparoscopic lysis of adhesions over 1 hr ESTIMATED BLOOD LOSS: 300 mL. SPECIMENS REMOVED: Gallbladder. COMPLICATIONS: None Operative Findings: 1. Redundant gallbladder infundibulum abutting common bile duct 2. Moderate intra-abdominal fat adding complexity to case 3. Generalized ileus adding complexity to case, with diffuse gaseous distention 4. Multiple gallstones 5. Dissection performed on the gallbladder infundibulum and body. 6. Dome down technique performed 7. Intra-abdominal ascites 8. Console time 91 minutes INDICATIONS: The patient is a 69-year-old male who presents with hyperbilirubinemia and gallstones. Surgical intervention with a laparoscopic cholecystectomy was described. Benefits and risks were described at length including injury to the biliary tree, bleeding, infection, need for further surgery. Robotic assisted laparoscopic approach was described. Informed consent was obtained. DESCRIPTION OF PROCEDURE: Patient was brought to the operating room, placed in supine position. After general induction, the abdomen had been prepped and draped in standard sterile fashion. The robotic da Kymberly XI system was primed. After a timeout protocol was performed, the patient had been prepped and draped in standard sterile fashion. Ioban draping was placed. The patient was injected with indocyanine green. A 5 mm 0 degrees laparoscopic trocar entry was performed along the left upper quadrant. The abdomen was insufflated to 15 mmHg pressure which was tolerated well. Diagnostic laparoscopy demonstrated no injury to bowel viscera or mesentery. Moderate intra-abdominal gaseous distention was identified including moderate intra-abdominal fat. Next, two 8 mm robotic ports were placed along the right upper abdomen. An 8-mm port was maintained along the epigastrium. Another 8 mm port was placed along the left upper abdominal wall after exchanging the 5 mm port. Please note that the ports were placed at least 10 to 15 cm away from the target anatomy of the gallbladder. The robot was docked along the left lateral abdomen. The patient was repositioned in reverse Trendelenburg position. Using a grasper for arm 1, a grasper for arm 4, including hook cautery for arm 3, the robotic system was docked and primed as described. A 30 camera was used. Patient was placed in 21 reverse Trendelenburg with right side up 6. Instruments were interchanged by the assistant professor sculpture including vessel sealer, robotic suction secretary office clerk, hook cautery, graspers and clip appliers. I sat at the console. Dense pericholecystic adhesions were identified along the gallbladder infundibulum and fundus of the gallbladder were dissected using vessel sealer. Laparoscopic lysis of adhesions over 1 hour was performed using vessel sealer and hook cautery. The right lobe of the liver was hypoplastic. The right lobe of the liver was reflected towards the upper abdomen. The gallbladder fundus was retracted towards the dome of the liver. The cystic structures were obscured from edematous infundibulum and fatty tissue. A dome down technique was performed removing the gallbladder from the hepatic fossa. Using hook cautery, carefully the gallbladder was dissected from the liver bed. Intermittent oozing from some small feeder vessels of the gallbladder wall was cauterized. The cystic duct was carefully skeletonized. In a lateral superior retraction of the gallbladder, the window of the cystic duct from the cystic artery was opened. LARGE PLASTIC CLIPS were used for the entire case. Two clips were placed along the cystic duct one proximally and one distally. The cystic duct was divided using oxacillin. Next, dense adhesions were confirmed along the infundibulum to the liver bed and carefully dissecting using a hook cautery. A vessel sealer was used to resect the rest of the gallbladder from the hepatic fossa after the cystic duct was controlled and divided. The gallbladder was decompressed. The abdomen was irrigated with normal saline. Final look of the liver bed was completely dry. The robot was undocked. I re-scrubbed into the case. Using a 10 mm Endo Catch bag via the left upper quadrant incision, the specimen was removed from the abdominal cavity After widening the incision, 0 Vicryl Michael Jiang was applied to close the fascial defect. All pneumoperitoneum instruments were evacuated from the abdominal cavity. The incisions were reapproximated using 4-0 Monocryl in an interrupted subcuticular fashion. Please note along the trocar sites, local anesthetic was placed as a field block prior to insertion of all instruments. The skin was cleansed with dilute hyd rogen peroxide. Liquid glue was applied to the skin. Optifoam dressing was placed along the left upper quadrant. At the end of the procedure needle, sponge, and instrument count had been verified correct by the brewing technician. The patient was transferred to postanesthesia care unit in stable condition.
--- NOTE | 2020-01-21 15:09 | P.CRDCN ---
History of Present Illness History of present illness: HISTORY OF PRESENTING ILLNESS This is a pleasant 69-year-old male past medical history significant for hypertension, dyslipidemia, diabetes mellitus, former nicotine dependence and regular alcohol intake. Denies prior history of coronary artery disease and does not follow in the office with a brazer repair and salvage. We have been asked to see in consultation for preoperative evaluation. The patient is scheduled to undergo laparoscopic cholecystectomy secondary to gallstone pancreatitis. He is seen and examined resting comfortably laying flat on the stretcher in the preoperative area. He denies symptoms of chest pain, shortness of breath, dizziness or palpitations. EKG performed revealed sinus mechanism with nonspecific T-wave flattening noted in the inferior leads with no evidence of ischemic changes. Current daily cardiac medications include losartan/HCTZ 50/12.5 mg daily and simvastatin 20 mg at bedtime. REVIEW OF SYSTEMS At the time of my exam: CONSTITUTIONAL: Denies fever or chills. CARDIOVASCULAR: Denies chest pain, shortness of breath, orthopnea, PND or palpitations. RESPIRATORY: Denies cough. GASTROINTESTINAL: Denies abdominal pain, diarrhea, constipation, nausea or vomiting. MUSCULOSKELETAL: Denies myalgias. NEUROLOGIC: Denies numbness, tingling or weakness. ENDOCRINE: Denies fatigue, weight change, polydipsia or polyurina. GENITOURINARY: Denies burning, hematuria or urgency with micturation. HEMATOLOGIC: Denies history of anemia or bleeding. PHYSICAL EXAMINATION Blood pressure 156/83 heart rate 102 afebrile and maintaining oxygen saturation on nasal cannula. CONSTITUTIONAL: No apparent distress. HEENT: Head is normocephalic. Pupils are equal, round. Sclerae anicteric. Mucous membranes of the mouth are moist. No JVD. No carotid bruit. CHEST EXAMINATION: Lungs are clear to auscultation. No chest wall tenderness is noted on palpation or with deep breathing. HEART EXAMINATION: Regular rate and rhythm. S1, S2 heard. No murmurs, gallops or rub. ABDOMEN: Soft, nontender. Positive bowel sounds. EXTREMITIES: 2+ peripheral pulses, no lower extremity edema and no calf tenderness. NEUROLOGIC EXAMINATION: Patient is awake, alert and oriented x3. ASSESSMENT Gallstone pancreatitis Hypertension Dyslipidemia Diabetes mellitus PLAN Clinically he is euvolemic. He does not appear to be in acute heart failure. He has no symptoms of angina and denies underlying history of coronary artery disease. Given his past medical history of diabetes mellitus this places him at increased risk for healing postoperatively. There is no acute contraindications undergo surgical intervention. Thank you kindly for this consultation. Nurse Practitioner note has been reviewed, I agree with a documented findings and plan of care. Patient was seen and examined. Past Medical History Past Medical History: Diabetes Mellitus, Hypertension Additional Past Medical History / Comment(s): gallstones History of Any Multi-Drug Resistant Organisms: None Reported Past Surgical History: Hernia Repair Past Anesthesia/Blood Transfusion Reactions: No Reported Reaction Past Psychological History: No Psychological Hx Reported Smoking Status: Former smoker Past Alcohol Use History: Heavy Additional Past Alcohol Use History / Comment(s): used to drink 1L daily whiskey, quit 2009. now drinks a beer a week Past Drug Use History: None Reported - Past Family History Father Family Medical History: Cancer Medications and Allergies Home Medications Medication Instructions Recorded Confirmed Type Acetaminophen [Tylenol] 500 - 1,000 mg PO Q6H PRN 01/19/20 01/19/20 History B Complex W/C 1 tab PO DAILY@0800 01/19/20 01/19/20 History Diclofenac Sodium [Voltaren Gel] 1 applic TOPICAL DAILY PRN 01/19/20 01/19/20 History Docusate [Colace] 200 mg PO HS@199901/19/20 01/19/20 History Famotidine [Pepcid] 20 mg PO DAILY@0800 01/19/20 01/19/20 History Ibuprofen [Motrin] 600 mg PO TID PRN 01/19/20 01/19/20 History Lactulose 10 gm PO BID@0800,199901/19/20 01/19/20 History Losartan-Hctz 50-12.5 mg [Hyzaar 1 tab PO DAILY@0800 01/19/20 01/19/20 History 50-12.5] Menthol [Biofreeze] 1 applic TOPICAL QID PRN 01/19/20 01/19/20 History Simvastatin [Zocor] 20 mg PO HS@199901/19/20 01/19/20 History Ursodiol [Actigall] 300 mg PO TID-W/MEALS 01/19/20 01/19/20 History metFORMIN HCL 500 mg PO BID@0800,1700 01/19/20 01/19/20 History Allergies Allergy/AdvReac Type Severity Reaction Status Date / Time No Known Allergies Allergy Verified 01/19/20 10:56 Physical Exam Vitals: Vital Signs Temp Pulse Pulse Resp BP Pulse Ox 01/21/20 14:33 102 H 18 156/83 93 L 01/21/20 14:01 92 18 144/78 92 L 01/21/20 13:46 95 16 140/65 94 L 01/21/20 13:32 96 16 140/69 95 01/21/20 13:16 96 16 149/82 96 01/21/20 13:08 98 F 96 16 140/69 95 01/21/20 10:09 109 H 16 162/97 92 L 01/21/20 07:40 16 01/21/20 07:23 98.8 F 101 H 16 135/73 94 L 01/21/20 02:37 98.4 F 99 18 133/72 94 L 01/20/20 20:00 98.9 F 101 H 18 162/81 94 L Intake and Output 01/21/20 01/21/20 01/21/20 06:59 14:59 22:59 Intake Total 2150 Output Total 200 30 Balance -200 2120 Intake: IV 2150 Output: Urine 200 Estimated Blood Loss 30 Other: # Voids 1 Weight 107.955 kg Results 01/19/20 05:42 01/21/20 08:12 Cardiac Enzymes 01/21/20 Range/Units 08:12 AST 29 (17-59) U/L Comprehensive Metabolic Panel 01/21/20 Range/Units 08:12 Sodium 136 L (137-145) mmol/L Potassium 3.6 (3.5-5.1) mmol/L Chloride 104 (98-107) mmol/L Carbon Dioxide 25 (22-30) mmol/L BUN 11 (9-20) mg/dL Creatinine 0.68 (0.66-1.25) mg/dL Glucose 145 H (74-99) mg/dL Calcium 8.0 L (8.4-10.2) mg/dL AST 29 (17-59) U/L ALT 24 (4-49) U/L Alkaline Phosphatase 109 (38-126) U/L Total Protein 5.7 L (6.3-8.2) g/dL Albumin 2.9 L (3.5-5.0) g/dL Current Medications Generic Name Dose Route Start Last Admin Trade Name Freq PRN Reason Stop Dose Admin Atorvastatin Calcium 10 mg 01/19/20 20:00 01/20/20 21:19 Lipitor PO 10 mg HS@1999 [facility] Administration Diclofenac Sodium 2 gm 01/19/20 18:03 Voltaren Gel TOPICAL DAILY PRN Pain Docusate Sodium 200 mg 01/19/20 20:00 01/20/20 21:19 Colace PO 200 mg HS@1999 [facility] Administration Famotidine 20 mg 01/19/20 19:00 01/21/20 08:03 Pepcid PO 20 mg DAILY@0800 [facility] Administration Heparin Sodium (Porcine) 5,000 unit 01/19/20 00:00 01/21/20 08:03 Heparin SQ 5,000 unit Q8HR [facility] Administration Hydromorphone HCl 1 mg 01/18/20 21:34 01/21/20 05:27 Dilaudid IVP 1 mg Q3HR PRN Administration Severe Pain Lactated Ringer's 1,000 mls @ 200 mls/hr 01/18/20 22:15 01/21/20 09:43 Lactated Ringers IV Not Given .Q5H [facility] Piperacillin Sod/Tazobactam 100 mls @ 25 mls/hr 01/21/20 16:00 Sod 3.375 gm/ Sodium Chloride IVPB Q8HR [facility] Insulin Aspart 0 unit 01/19/20 07:30 01/21/20 08:01 Novolog SQ 2 unit ACHS [facility] Administration Protocol Ketorolac Tromethamine 30 mg 01/21/20 14:00 Toradol IVP 01/23/20 08:01 Q6H [facility] Lactulose 10 gm 01/19/20 20:00 01/21/20 08:02 Cephulac PO 10 gm BID@799,1999 [facility] Administration Losartan Potassium 50 mg 01/19/20 18:15 01/21/20 08:03 Cozaar PO 50 mg DAILY [facility] Administration Naloxone HCl 0.2 mg 01/18/20 21:34 Narcan IV Q2M PRN Opioid Reversal Naloxone HCl 0.2 mg 01/21/20 13:17 Narcan IV Q2M PRN Opioid Reversal Ondansetron HCl 4 mg 01/18/20 21:34 01/20/20 14:50 Zofran IVP 4 mg Q8HR PRN Administration Nausea And Vomiting Pantoprazole Sodium 40 mg 05/27/20 09:00 01/21/20 08:02 Protonix IV 40 mg DAILY [facility] Administration Tamsulosin HCl 0.4 mg 01/21/20 18:30 Flomax PO PC-SUPPER [facility] Intake and Output 01/21/20 01/21/20 01/21/20 06:59 14:59 22:59 Intake Total 2150 Output Total 200 30 Balance -200 2120 Intake: IV 2150 Output: Urine 200 Estimated Blood Loss 30 Other: # Voids 1 Weight 107.955 kg Patient Weight 01/22/20 06:59 Weight 107.955 kg 01/19/20 05:42 01/21/20 08:12
[2020-01-21] MEDS: PIPERACILLIN-TAZOBACTAM 3.375 GM in SODIUM CHLORIDE 0.9% 100 ML IVPB SCH (15:48)
[2020-01-21] MEDS: KETOROLAC 30 MG/ML 1 ML VIAL IVP SCH ×2 (15:49→21:05)
[2020-01-21 17:05] LABS: Glucose,Whole Blood 168 mg/dL (75-99)
[2020-01-21] MEDS: TAMSULOSIN 0.4 MG CAP.ER.24H PO SCH (17:25)
[2020-01-21 20:31] LABS: Glucose,Whole Blood 186 mg/dL (75-99)
[2020-01-21] MEDS: DOCUSATE 100 MG CAP PO SCH (21:05)
[2020-01-21] MEDS: ATORVASTATIN 10 MG TAB PO SCH (21:05)
[2020-01-22] MEDS: HEPARIN SODIUM,PORCINE 5,000 UNIT/ML 1 ML VIAL SQ SCH ×3 (00:01→15:20)
[2020-01-22] MEDS: PIPERACILLIN-TAZOBACTAM 3.375 GM in SODIUM CHLORIDE 0.9% 100 ML IVPB SCH ×3 (00:01→15:20)
[2020-01-22] MEDS: KETOROLAC 30 MG/ML 1 ML VIAL IVP SCH ×4 (02:04→20:51)
[2020-01-22] MEDS: LACTATED RINGERS 1,000 ML IV SCH ×3 (02:06→12:50)
[2020-01-22 06:51] LABS: Glucose,Whole Blood 172 mg/dL (75-99)
[2020-01-22] MEDS: INSULIN ASPART (NovoLOG) 100 UNIT/ML VIAL SQ SCH ×4 (07:50→21:02)
[2020-01-22] MEDS: LACTULOSE 20 GM/30 ML CUP PO SCH ×2 (07:50→20:52)
[2020-01-22] MEDS: FAMOTIDINE 20 MG TAB PO SCH (07:50)
[2020-01-22] MEDS: LOSARTAN 50 MG TAB PO SCH (07:51)
[2020-01-22] MEDS: PANTOPRAZOLE 40 MG/10 ML VIAL IV SCH (07:51)
[2020-01-22 07:59] LABS: Basophils % (A) 0 %; Eosinophils % (A) 0 %; HCT 38.2 % (39.0-53.0); HGB 12.7 gm/dL (13.0-17.5); Lymphocytes # (A) 1.1 k/uL (1.0-4.8); Lymphocytes % (A) 13 %; MCHC 33.3 g/dL (31.0-37.0); Mean Platelet Volume 6.8; Monocytes # (A) 0.4 k/uL (0-1.0); Monocytes % (A) 4 %; Neutrophils # (A) 7.1 k/uL (1.3-7.7); Neutrophils % (A) 81 %; Platelet Count 201 k/uL (150-450); RBC 4.55 m/uL (4.30-5.90); RDW 13.7 % (11.5-15.5); WBC 8.8 k/uL (3.8-10.6)
[2020-01-22 08:17] LABS: ALT 29 U/L (4-49); AST 30 U/L (17-59); African American GFR (CKD) >90 (>60 ml/min/1.73 sqM); Albumin 2.6 g/dL (3.5-5.0); Alkaline Phosphatase 124 U/L (38-126); Anion Gap 6 mmol/L; Blood Urea Nitrogen 16 mg/dL (9-20); Calcium 7.5 mg/dL (8.4-10.2); Carbon Dioxide 27 mmol/L (22-30); Chloride 104 mmol/L (98-107); Glucose 152 mg/dL (74-99); Non-African American GFR(CKD) >90 (>60 ml/min/1.73 sqM); Potassium 3.8 mmol/L (3.5-5.1); Sodium 137 mmol/L (137-145); Total Bilirubin 1.7 mg/dL (0.2-1.3); Total Protein 5.3 g/dL (6.3-8.2)
[2020-01-22] MEDS ORDERED: MAGNESIUM CITRATE 296 ML BOTTLE PO ONE (10:57)
--- NOTE | 2020-01-22 10:58 | P.PN ---
Subjective Progress Note Date: 01/22/20 Principal diagnosis: Gallstone pancreatitis Patient doing well today. Denies pain. Tolerating regular diet. He has not had a bowel movement since Friday. Bilirubin today improved at 1.7. White blood cell count 8.8. Objective - Vital Signs Vital signs: Vital Signs Temp 98.3 F 01/22/20 07:00 Pulse 87 01/22/20 07:00 Resp 17 01/22/20 07:00 BP 157/87 01/22/20 07:00 Pulse Ox 96 01/22/20 07:00 Intake & Output 01/21/20 01/22/20 01/22/20 18:59 06:59 18:59 Intake Total 2150 350 Output Total 330 1595 250 Balance 1820 -1245 -250 Weight 107.955 kg Intake: IV 2150 Oral 350 Output: Urine 300 1595 250 Uretheral (Briggs) 250 Estimated Blood Loss 30 Other: Voiding Method Indwelling Catheter Indwelling Catheter # Voids 1 - Exam Abdomen: Soft, nondistended, incisions clean and dry - Labs CBC & Chem 7: 01/22/20 07:24 01/22/20 07:24 Labs: Abnormal Lab Results - Last 24 Hours (Table) 01/21/20 01/21/20 01/22/20 Range/Units 17:03 20:29 06:50 Hgb (13.0-17.5) gm/dL Hct (39.0-53.0) % Glucose (74-99) mg/dL POC Glucose (mg/dL) 168 H 186 H 172 H (75-99) mg/dL Calcium (8.4-10.2) mg/dL Total Bilirubin (0.2-1.3) mg/dL Total Protein (6.3-8.2) g/dL Albumin (3.5-5.0) g/dL 01/22/20 01/22/20 Range/Units 07:24 07:24 Hgb 12.7 L (13.0-17.5) gm/dL Hct 38.2 L (39.0-53.0) % Glucose 152 H (74-99) mg/dL POC Glucose (mg/dL) (75-99) mg/dL Calcium 7.5 L (8.4-10.2) mg/dL Total Bilirubin 1.7 H (0.2-1.3) mg/dL Total Protein 5.3 L (6.3-8.2) g/dL Albumin 2.6 L (3.5-5.0) g/dL Microbiology - Last 24 Hours (Table) 01/21/20 08:12 Blood Culture - Preliminary Blood No Growth after 24 hours Assessment and Plan (1) Pancreatitis Narrative/Plan: Patient overall doing better. Continue regular diet. We'll add magnesium cit rate for constipation. Home soon. Current Visit: Yes Status: Acute Code(s): K85.90 - ACUTE PANCREATITIS WITHOUT NECROSIS OR INFECTION, UNSP SNOMED Code(s): 85836348
--- NOTE | 2020-01-22 11:13 | P.PN ---
Subjective Progress Note Date: 01/22/20 Principal diagnosis: preoperative cardiac assessment This is a 69-year-old gentleman with hypertension, dyslipidemia, and diabetes, who was admitted to the hospital was gallstone pancreatitis and underwent yesterday cholecystectomy. The patient was seen today, January [id number]. The patient stated that the abdominal discomfort has improved significantly. On examination he is [place]an[place]it Sernais was lower extremity edema and currently is on IV fluid which I am going to stop. Also on examination he is slightly tachycardic. I'm going to start the patient on metoprolol at 12.5 mg by mouth twice a day. I would advise monitor the patient overnight. Objective - Vital Signs Vital signs: Vital Signs Temp 98.3 F 01/22/20 07:00 Pulse 87 01/22/20 07:00 Resp 17 01/22/20 07:00 BP 157/87 01/22/20 07:00 Pulse Ox 96 01/22/20 07:00 Intake & Output 01/21/20 01/22/20 01/22/20 18:59 06:59 18:59 Intake Total 2150 350 Output Total 330 1595 250 Balance 1820 -1245 -250 Weight 107.955 kg Intake: IV 2150 Oral 350 Output: Urine 300 1595 250 Uretheral (Briggs) 250 Estimated Blood Loss 30 Other: Voiding Method Indwelling Catheter Indwelling Catheter # Voids 1 - Constitutional General appearance: Present: no acute distress - Respiratory Respiratory: bilateral: CTA - Cardiovascular Rhythm: regular Heart sounds: normal: S1, S2 - Labs CBC & Chem 7: 01/22/20 07:24 01/22/20 07:24 Labs: Abnormal Lab Results - Last 24 Hours (Table) 01/21/20 01/21/20 01/22/20 Range/Units 17:03 20:29 06:50 Hgb (13.0-17.5) gm/dL Hct (39.0-53.0) % Glucose (74-99) mg/dL POC Glucose (mg/dL) 168 H 186 H 172 H (75-99) mg/dL Calcium (8.4-10.2) mg/dL Total Bilirubin (0.2-1.3) mg/dL Total Protein (6.3-8.2) g/dL Albumin (3.5-5.0) g/dL 01/22/20 01/22/20 Range/Units 07:24 07:24 Hgb 12.7 L (13.0-17.5) gm/dL Hct 38.2 L (39.0-53.0) % Glucose 152 H (74-99) mg/dL POC Glucose (mg/dL) (75-99) mg/dL Calcium 7.5 L (8.4-10.2) mg/dL Total Bilirubin 1.7 H (0.2-1.3) mg/dL Total Protein 5.3 L (6.3-8.2) g/dL Albumin 2.6 L (3.5-5.0) g/dL Microbiology - Last 24 Hours (Table) 01/21/20 08:12 Blood Culture - Preliminary Blood No Growth after 24 hours Assessment and Plan Assessment: assessment 1 gallstone pancreatitis and status post cholecystectomy Sinus tachycardia Bilateral lower extremities edema Hypertension Dyslipidemia Plan DC the IV fluid Start the patient on metoprolol Obtain an echocardiogram was Doppler Follow-up with the patient and keep him for the next 24
[2020-01-22 11:48] LABS: Glucose,Whole Blood 144 mg/dL (75-99)
[2020-01-22 13:45] LABS: Hemoglobin A1C 7.3 % (4.0-6.0)
--- NOTE | 2020-01-22 13:54 | ECHOF ---
Referral Reason:CHF MEASUREMENTS -------- HEIGHT: 180.3 cm WEIGHT: 108.0 kg BP: IVSd: 1.3 cm (0.6 - 1.1) LVIDd: 4.6 cm (3.9 - 5.3) LVPWd: 1.4 cm (0.6 - 1.1) IVSs: 1.5 cm LVIDs: 2.8 cm LVPWs: 2.2 cm Ao Diam: 3.0 cm (2.0 - 3.7) AV Cusp: 2.2 cm (1.5 - 2.6) LA Diam: 3.3 cm (2.7 - 3.8) MV EXCURSION: 19.089 mm (> 18.000) MV EF SLOPE: 172 mm/s (70 - 150) EPSS: 1.4 cm MV E William: 0.87 m/s MV DecT: 159 ms MV A William: 0.77 m/s MV E/A Ratio: 1.13 RAP: 5.00 mmHg RVSP: 14.20 mmHg FINDINGS -------- Sinus rhythm. This was a technically difficult study with suboptimal views. The left ventricular size is normal. There is mild concentric left ventricular hypertrophy. Overa ll left ventricular systolic function is normal with, an EF between 55 - 60 %. The right ventricle is normal in size. The left atrial size is normal. The right atrial size is normal. Lumason used The aortic valve is trileaflet and appears structurally normal. The mitral valve is normal. Mild mitral annular calcification present. There is trace mitral regu rgitation. The tricuspid valve appears structurally normal. Mild tricuspid regurgitation present. Right vent ricular systolic pressure is normal at < 35 mmHg. There is no pulmonic regurgitation present. The aortic root size is normal. There is no pericardial effusion. CONCLUSIONS -------- 1. Sinus rhythm. 2. This was a technically difficult study with suboptimal views. 3. The left ventricular size is normal. 4. There is mild concentric left ventricular hypertrophy. 5. Overall left ventricular systolic function is normal with, an EF between 55 - 60 %. 6. The right ventricle is normal in size. 7. The left atrial size is normal. 8. The right atrial size is normal. 9. Lumason used 10. The aortic valve is trileaflet and appears structurally normal. 11. The mitral valve is normal. 12. Mild mitral annular calcification present. 13. There is trace mitral regurgitation. 14. The tricuspid valve appears structurally normal. 15. Mild tricuspid regurgitation present. 16. Right ventricular systolic pressure is normal at < 35 mmHg. 17. There is no pulmonic regurgitation present. 18. The aortic root size is normal. 19. There is no pericardial effusion. ECONOMICS TEACHER: Kourtney Jalloh RDCS
[2020-01-22] MEDS: FUROSEMIDE 10 MG/ML 4 ML VIAL IV SCH ×2 (15:21→20:51)
[2020-01-22 16:39] LABS: Glucose,Whole Blood 183 mg/dL (75-99)
[2020-01-22] MEDS: TAMSULOSIN 0.4 MG CAP.ER.24H PO SCH (18:21)
[2020-01-22] MEDS: DOCUSATE 100 MG CAP PO SCH (20:51)
[2020-01-22] MEDS: ATORVASTATIN 10 MG TAB PO SCH (20:51)
[2020-01-22] MEDS: METOPROLOL TARTRATE 12.5 MG TAB PO SCH (20:51)
[2020-01-22 20:54] LABS: Glucose,Whole Blood 197 mg/dL (75-99)
--- NOTE | 2020-01-22 23:04 | P.PN ---
Progress Note - Text Progress Note Date: 01/22/20 Presenting complaint: Abdominal pain Interval history: Patient admitted with acute gallstone pancreatitis. January 20 patient underwent cholecystectomy-multiple gallstones were also removed. January 20 I, attempted. to see the patient twice patienthead not return to the floor. Today-sitting at the edge of the bed, eating, feeling better. Has lower extremity edema. Had been getting IV fluids. Some shortness of breath. Requiring oxygen.. Review of systems: Was done for constitutional, cardiovascular, GI, pulmonary. relevant finding as above Active Medications Atorvastatin Calcium (Lipitor) 10 mg PO HS@1999 [facility] Last Admin: 01/22/20 20:51 Dose: 10 mg Documented by: Diclofenac Sodium (Voltaren Gel) 2 gm TOPICAL DAILY PRN PRN Reason: Pain Docusate Sodium (Colace) 200 mg PO HS@1999 [facility] Last Admin: 01/22/20 20:51 Dose: 200 mg Documented by: Famotidine (Pepcid) 20 mg PO DAILY@0800 [facility] Last Admin: 01/22/20 07:50 Dose: 20 mg Documented by: Heparin Sodium (Porcine) (Heparin) 5,000 unit SQ Q8HR [facility] Last Admin: 01/22/20 15:20 Dose: 5,000 unit Documented by: Hydromorphone HCl (Dilaudid) 1 mg IVP Q3HR PRN PRN Reason: Severe Pain Last Admin: 01/21/20 05:27 Dose: 1 mg Documented by: Piperacillin Sod/Tazobactam (Sod 3.375 gm/ Sodium Chloride) 100 mls @ 25 mls/hr IVPB Q8HR [facility] Last Admin: 01/22/20 15:20 Dose: 25 mls/hr Documented by: Insulin Aspart (Novolog) 0 unit SQ [facility]; Protocol Last Admin: 01/22/20 21:02 Dose: 3 unit Documented by: Ketorolac Tromethamine (Toradol) 30 mg IVP Q6H [facility] Stop: 01/23/20 08:01 Last Admin: 01/22/20 20:51 Dose: 30 mg Documented by: Lactulose (Cephulac) 10 gm PO BID@0800,1999 [facility] Last Admin: 01/22/20 20:52 Dose: Not Given Documented by: Losartan Potassium (Cozaar) 50 mg PO DAILY [facility] Last Admin: 01/22/20 07:51 Dose: 50 mg Documented by: Metoprolol Tartrate (Lopressor) 12.5 mg PO BID [facility] Last Admin: 01/22/20 20:51 Dose: 12.5 mg Documented by: Naloxone HCl (Narcan) 0.2 mg IV Q2M PRN PRN Reason: Opioid Reversal Naloxone HCl (Narcan) 0.2 mg IV Q2M PRN PRN Reason: Opioid Reversal Ondansetron HCl (Zofran) 4 mg IVP Q8HR PRN PRN Reason: Nausea And Vomiting Last Admin: 01/20/20 14:50 Dose: 4 mg Documented by: Pantoprazole Sodium (Protonix) 40 mg IV DAILY [facility] Last Admin: 01/22/20 07:51 Dose: 40 mg Documented by: Tamsulosin HCl (Flomax) 0.4 mg PO PC-SUPPER [facility] Last Admin: 01/22/20 18:21 Dose: 0.4 mg Documented by: On examination: VITAL SIGNS: 0.3, 87, 17, 157/87, 96% on 4 L GENERAL APPEARANCE: . sitting at the edge of the bed, eating HEENT: Normal external appearance of nose and ear. Oral cavity normal EYES: Pupils equal. Conjunctiva normal. NECK: JVD not raised. Mass not palpable. RESPIRATORY: Respiratory effort increasedl. Lungs clear to auscultation. CARDIOVASCULAR: First and second sounds normal. edema present ABDOMEN: Soft. Liver and spleen not palpable. minimal Epigastric tenderness. No guarding no rigidity. No mass palpable. PSYCHIATRY: Alert and oriented x3. Mood and affect normal. Investigations: white count 8.8 hemoglobin 12.7 creatinine 0.79 Previous testing: Abdominal ultrasound-fatty infiltration of the liver, gallbladder wall thickening, gallstones Computed tomography scan of the abdomen-stranding of the pancreas suggestive acute pancreatitis, enlarged prostate, Assessment: -Acute severe gallstone pancreatitis with clinical improvement. Patient also had a history of heavy alcohol use in the past.-status post cholecystectomy -Acute fluid overload from IV fluids -Acute hypoxic respiratory failure from pulmonary edema from IV fluids-new diagnosis -Diabetes mellitus type 2 -Alcoholic fatty liver disease with a prior history of heavy alcoholism -Essential hypertension -Hyperlipidemia -Gallstones -Obesity BMI 31.4 Plan: -patient IV fluids are being discontinued. We'll give 2 doses of IV Lasix 40 mg. Discussed with the patient. Electrolytes to be checked in the morning.patient diet was advanced to low-fat diet this morning by Dr. Russell.
[2020-01-23] MEDS: HEPARIN SODIUM,PORCINE 5,000 UNIT/ML 1 ML VIAL SQ SCH ×2 (00:47→07:49)
[2020-01-23] MEDS: PIPERACILLIN-TAZOBACTAM 3.375 GM in SODIUM CHLORIDE 0.9% 100 ML IVPB SCH ×2 (00:59→07:48)
[2020-01-23] MEDS: KETOROLAC 30 MG/ML 1 ML VIAL IVP SCH ×2 (02:49→07:49)
[2020-01-23 07:08] LABS: Glucose,Whole Blood 156 mg/dL (75-99)
[2020-01-23 07:14] LABS: African American GFR (CKD) >90 (>60 ml/min/1.73 sqM); Anion Gap 6 mmol/L; Blood Urea Nitrogen 20 mg/dL (9-20); Calcium 7.5 mg/dL (8.4-10.2); Carbon Dioxide 26 mmol/L (22-30); Chloride 106 mmol/L (98-107); Glucose 151 mg/dL (74-99); Non-African American GFR(CKD) >90 (>60 ml/min/1.73 sqM); Potassium 3.6 mmol/L (3.5-5.1); Sodium 138 mmol/L (137-145)
[2020-01-23] MEDS: INSULIN ASPART (NovoLOG) 100 UNIT/ML VIAL SQ SCH ×2 (07:47→12:39)
[2020-01-23] MEDS: LACTULOSE 20 GM/30 ML CUP PO SCH (07:48)
[2020-01-23] MEDS: FAMOTIDINE 20 MG TAB PO SCH (07:48)
[2020-01-23] MEDS: PANTOPRAZOLE 40 MG/10 ML VIAL IV SCH (07:48)
[2020-01-23] MEDS: METOPROLOL TARTRATE 12.5 MG TAB PO SCH (07:48)
[2020-01-23] MEDS: LOSARTAN 50 MG TAB PO SCH (07:48)
[2020-01-23 07:55] VITALS: BP 154/89; PULSE 98; RESP 18; TEMP 97.5
--- NOTE | 2020-01-23 10:04 | P.PN ---
Subjective Progress Note Date: 01/23/20 Principal diagnosis: preoperative cardiac assessment This is a 69-year-old gentleman with hypertension, dyslipidemia, and diabetes, who was admitted to the hospital was gallstone pancreatitis and underwent yesterday cholecystectomy. the patient was seen today, January 222019. The abdominal discomfort has resolved. Yesterday I did start the patient on metoprolol at 12.5 mg by mouth twice a day for tachycardia and hypertension and today he is doing better from that standpoint of view. I'm going to increase the dose to 25 mg by mouth twice a day. From the cardiovascular standpoint of view, the patient can be discharged home Objective - Vital Signs Vital signs: Vital Signs Temp 97.5 F L 01/23/20 07:00 Pulse 98 01/23/20 07:00 Resp 18 01/23/20 07:00 BP 154/89 01/23/20 07:00 Pulse Ox 95 01/23/20 07:00 Intake & Output 01/22/20 01/23/20 01/23/20 18:59 06:59 18:59 Intake Total 900 100 Output Total 250 2000 Balance 650 -1900 Intake: Intake, IV Titration 900 Amount Lactated Ringers 1,000 ml 800 @ 200 mls/hr IV .Q5H [facility]IA[facility] Rx#:[id number] Piperacillin-Tazobactam 3 100 .375 gm In Sodium Chloride 0.9% 100 ml @ 25 mls/hr IVPB Q8HR [facility] Rx# :[id number] Oral 100 Output: Urine 250 2000 Uretheral (Briggs) 250 Other: Voiding Method Toilet Urinal # Voids 3 - Constitutional General appearance: Present: no acute distress - Respiratory Respiratory: bilateral: CTA - Cardiovascular Rhythm: regular Heart sounds: normal: S1, S2 - Labs CBC & Chem 7: 01/22/20 07:24 01/23/20 06:43 Labs: Abnormal Lab Results - Last 24 Hours (Table) 01/22/20 01/22/20 01/22/20 Range/Units 07:24 11:47 16:38 Glucose (74-99) mg/dL POC Glucose (mg/dL) 144 H 183 H (75-99) mg/dL Hemoglobin A1c 7.3 H (4.0-6.0) % Calcium (8.4-10.2) mg/dL 05/01/23/20 01/23/20 Range/Units 20:39 06:43 07:07 Glucose 151 H (74-99) mg/dL POC Glucose (mg/dL) 197 H 156 H (75-99) mg/dL Hemoglobin A1c (4.0-6.0) % Calcium 7.5 L (8.4-10.2) mg/dL Microbiology - Last 24 Hours (Table) 01/21/20 08:12 Blood Culture - Preliminary Blood No Growth after 24 hours Assessment and Plan Assessment: assessment 1 gallstone pancreatitis and status post cholecystectomy Sinus tachycardia Bilateral lower extremities edema Hypertension Dyslipidemia Plan increase the dose of metoprolol The patient can be discharged home
[2020-01-23 11:36] LABS: Glucose,Whole Blood 155 mg/dL (75-99)
--- NOTE | 2020-01-23 14:08 | P.PN ---
Subjective Progress Note Date: 01/23/20 Principal diagnosis: Gallstone pancreatitis Patient doing well today. Denies pain. 2 bowel moments. Hoping to go home. Objective - Vital Signs Vital signs: Vital Signs Temp 97.5 F L 01/23/20 07:00 Pulse 98 01/23/20 07:00 Resp 18 01/23/20 07:00 BP 154/89 01/23/20 07:00 Pulse Ox 95 01/23/20 07:00 Intake & Output 01/22/20 01/23/20 01/23/20 18:59 06:59 18:59 Intake Total 900 100 Output Total 250 2000 Balance 650 -1900 Intake: Intake, IV Titration 900 Amount Lactated Ringers 1,000 ml 800 @ 200 mls/hr IV .Q5H [facility]IAZ Rx#:[id number] Piperacillin-Tazobactam 3 100 .375 gm In Sodium Chloride 0.9% 100 ml @ 25 mls/hr IVPB Q8HR [facility] Rx# :[id number] Oral 100 Output: Urine 250 2000 Uretheral (Briggs) 250 Other: Voiding Method Toilet Urinal # Voids 3 # Bowel Movements 1 - Exam Abdomen: Soft, nondistended, incisions clean and dry, minimal tenderness - Labs CBC & Chem 7: 01/22/20 07:24 01/23/20 06:43 Labs: Abnormal Lab Results - Last 24 Hours (Table) 01/22/20 01/22/20 01/23/20 Range/Units 16:38 20:39 06:43 Glucose 151 H (74-99) mg/dL POC Glucose (mg/dL) 183 H 197 H (75-99) mg/dL Calcium 7.5 L (8.4-10.2) mg/dL 01/23/20 01/23/20 Range/Units 07:07 11:35 Glucose (74-99) mg/dL POC Glucose (mg/dL) 156 H 155 H (75-99) mg/dL Calcium (8.4-10.2) mg/dL Microbiology - Last 24 Hours (Table) 01/21/20 08:12 Blood Culture - Preliminary Blood No Growth after 48 hours Assessment and Plan (1) Pancreatitis Narrative/Plan: Continue diet as tolerated. Agree with plans for discharge. Status: Acute Code(s): K85.90 - ACUTE PANCREATITIS WITHOUT NECROSIS OR IN FECTION, UNSP SNOMED Code(s): 20074876
[2020-01-23] MEDS ORDERED: METOPROLOL TARTRATE 25 MG TAB PO SCH (21:00)
--- NOTE | 2020-01-23 21:46 | P.PN ---
Progress Note - Text Progress Note Date: 01/23/20 Presenting complaint: Abdominal pain Interval history: Patient admitted with acute gallstone pancreatitis. January 20 patient underwent cholecystectomy-multiple gallstones were also removed. January 20 I, attempted. to see the patient twice patienthead not return to the floor. Postprocedure patient got into fluid overloaded and pulmonary edema which he required IV Lasix. Responded well to same. Today-doing well. Responded well to IV Lasix. Pulse oxing well on room air. Ambulating. Prescriptions were taking care of. Discussed with the patient. No abdominal pain pain. Consultation: Dr. Russell from general surgery Dr. Napoleon Jean from GI Dr. Richmond from cardiology On examination: VITAL SIGNS: 97.5, 98, 18, 154/89, 95% on room air GENERAL APPEARANCE: . sitting at the edge of the bed, eating HEENT: Normal external appearance of nose and ear. Oral cavity normal EYES: Pupils equal. Conjunctiva normal. NECK: JVD not raised. Mass not palpable. RESPIRATORY: Respiratory effort increasedl. Lungs clear to auscultation. CARDIOVASCULAR: First and second sounds normal. edema present ABDOMEN: Soft. Liver and spleen not palpable. minimal Epigastric tenderness. No guarding no rigidity. No mass palpable. PSYCHIATRY: Alert and oriented x3. Mood and affect normal. Investigations: Potassium 3.6 creatinine 0.78 Previous testing: Abdominal ultrasound-fatty infiltration of the liver, gallbladder wall thickening, gallstones Computed tomography scan of the abdomen-stranding of the pancreas suggestive acute pancreatitis, enlarged prostate, Assessment: -Acute severe gallstone pancreatitis with clinical improvement. Patient also had a history of heavy alcohol use in the past.-status post cholecystectomy -Acute fluid overload from IV fluids-improved -Acute hypoxic respiratory failure from pulmonary edema from IV fluids-new diagnosis-improved -Diabetes mellitus type 2 -Alcoholic fatty liver disease with a prior history of heavy alcoholism -Essential hypertension -Hyperlipidemia -Gallstones -Obesity BMI 31.4 Disposition: penitentiary
== END 2020-01-23 13:06 | disposition home or self-care (01) | DRG 417 ==
LOC: EC 19:30 → EEVIPCON 21:36 → 5NMEDONC 21:36 → 4SSUR 01-19 14:08
PROVIDERS: ADMIT Hospitalist; ATTEND Hospitalist
PROC: 8E0W4CZ Robotic Assisted Procedure of Trunk Region, Percutaneous Endoscopic Approach (ICD-10-PCS; principal; 2020-01-21 08:45)
PROC: 4A1BXSH Monitoring of Gastrointestinal Vascular Perfusion using Indocyanine Green Dye, External Approach (ICD-10-PCS; principal; 2020-01-21 08:45)
PROC: 0FT44ZZ Resection of Gallbladder, Percutaneous Endoscopic Approach (ICD-10-PCS; principal; 2020-01-21 08:45)
DX: K85.10 Biliary acute pancreatitis without necrosis or infection (principal); J96.01 Acute respiratory failure with hypoxia; K80.63 Calculus of gallbladder and bile duct with acute cholecystitis with obstruction; K56.7 Ileus, unspecified; J98.11 Atelectasis; R18.8 Other ascites; E87.2 Acidosis; K70.0 Alcoholic fatty liver; I11.9 Hypertensive heart disease without heart failure; E11.43 Type 2 diabetes mellitus with diabetic autonomic (poly)neuropathy; F10.20 Alcohol dependence, uncomplicated; K31.84 Gastroparesis; Z20.828 Contact with and (suspected) exposure to other viral communicable diseases; K44.9 Diaphragmatic hernia without obstruction or gangrene; E78.5 Hyperlipidemia, unspecified; D17.79 Benign lipomatous neoplasm of other sites; N40.0 Benign prostatic hyperplasia without lower urinary tract symptoms; R00.0 Tachycardia, unspecified; E87.70 Fluid overload, unspecified; E66.9 Obesity, unspecified; Z68.31 Body mass index [BMI] 31.0-31.9, adult; Z79.84 Long term (current) use of oral hypoglycemic drugs; Z79.899 Other long term (current) drug therapy; Z87.891 Personal history of nicotine dependence; Z83.79 Family history of other diseases of the digestive system
CPT/HCPCS: 36415; 74177; 76705; 80048; 80053; 81001; 82150; 83036; 83605; 83690; 85025; 87040; 88304; 93005; 93306; 96361; 96372; 96374; 96375; 96376; 99285

== ENCOUNTER 2022-03-06 11:46 | Emergency (ER) | payer MEDICARE, OTHER ==
[2022-03-06 11:57] VITALS: TEMP 98.7
[2022-03-06] MEDS ORDERED: ONDANSETRON 4 MG/2 ML VIAL IVP STA (12:11)
[2022-03-06] MEDS ORDERED: SODIUM CHLORIDE 0.9% 500 ML 500 ML IV STA (12:11)
--- NOTE | 2022-03-06 12:13 | ED ---
General Adult HPI - General Chief complaint: Dizziness Stated complaint: Dizziness, Weakness Time Seen by Provider: 03/06/22 12:03 Source: patient, EMS, RN notes reviewed, old records reviewed Mode of arrival: EMS Limitations: no limitations - History of Present Illness Initial comments: 81-year-old male presenting for evaluation of dizziness, lightheadedness, and nausea. Patient states symptoms began about 4 AM this morning. He's had 2 separate episodes where he felt this all the room was spinning and this was associated with nausea. No chest pain or abdominal pain. No headache. No focal numbness or weakness. Patient states he felt in his usual state of health yesterday without any preceding complaints. No palpitations. - Related Data Home Medications Medication Instructions Recorded Confirmed Acetaminophen [Tylenol] 500 - 1,000 mg PO Q6H PRN 01/19/20 01/19/20 B Complex W/C 1 tab PO DAILY@0800 01/19/20 01/19/20 Diclofenac Sodium [Voltaren Gel] 1 applic TOPICAL DAILY PRN 01/19/20 01/19/20 Famotidine [Pepcid] 20 mg PO DAILY@0800 01/19/20 01/19/20 Ibuprofen [Motrin] 600 mg PO TID PRN 01/19/20 01/19/20 Lactulose 10 gm PO BID@0800,199901/19/20 01/19/20 Menthol [Biofreeze] 1 applic TOPICAL QID PRN 01/19/20 01/19/20 Simvastatin [Zocor] 20 mg PO HS@199901/19/20 01/19/20 metFORMIN HCL 500 mg PO BID@0800,1700 01/19/20 01/19/20 Previous Rx's Medication Instructions Recorded Amoxicillin/Potassium Clav 1 tab PO Q12HR #14 tab 01/23/20 [Augmentin 875-125 Tablet] Losartan-Hctz 50-12.5 mg [Hyzaar 1 tab PO BID #60 01/23/20 50-12.5] Metoprolol Tartrate [Lopressor] 25 mg PO BID #60 tab 01/23/20 Tamsulosin [Flomax] 0.4 mg PO PC-SUPPER #30 cap.er.24h 01/23/20 Meclizine [Antivert] 25 mg PO TID PRN #14 tab 03/06/22 Allergies Allergy/AdvReac Type Severity Reaction Status Date / Time No Known Allergies Allergy Verified 03/06/22 11:59 Review of Systems ROS Statement: Those systems with pertinent positive or pertinent negative responses have been documented in the HPI. ROS Other: All systems not noted in ROS Statement are negative. Past Medical History Past Medical History: Diabetes Mellitus, Hypertension Additional Past Medical History / Comment(s): gallstones History of Any Multi-Drug Resistant Organisms: None Reported Past Surgical History: Hernia Repair Past Anesthesia/Blood Transfusion Reactions: No Reported Reaction Past Psychological History: No Psychological Hx Reported Past Alcohol Use History: Heavy Past Drug Use History: None Reported - Past Family History Father Family Medical History: Cancer General Exam Limitations: no limitations General appearance: alert, in no apparent distress Head exam: Present: atraumatic, normocephalic Eye exam: Present: normal appearance, PERRL ENT exam: Present: normal exam Neck exam: Present: normal inspection. Absent: tenderness, meningismus Respiratory exam: Present: normal lung sounds bilaterally. Absent: respiratory distress, wheezes Cardiovascular Exam: Present: regular rate. Absent: normal rhythm, bradycardia GI/Abdominal exam: Present: soft. Absent: distended, tenderness, guarding Extremities exam: Present: normal inspection, normal capillary refill. Absent: calf tenderness Neurological exam: Present: alert, oriented X3, CN II-XII intact. Absent: motor sensory deficit (Normal strength throughout, no ataxia, no nystagmus) Psychiatric exam: Present: normal affect, normal mood Skin exam: Present: warm, intact, diaphoretic Course Vital Signs 03/06/22 03/06/22 11:51 13:46 Temperature 98.7 F Pulse Rate 78 75 Respiratory 20 16 Rate Blood Pressure 161/88 143/91 O2 Sat by Pulse 96 98 Oximetry EKG Findings - EKG Comments: EKG Findings:: EKG: Sinus rhythm rate of 79 NH interval 197, QRS duration 85, QTC [address] segment elevation. Medical Decision Making - Medical Decision Making 71-year-old visiting for evaluation of dizziness. This does seem vertigo in nature. He has no focal numbness or weakness. No ataxia. No headache. Given his age I did perform a workup in the emergency department including CT, chest x-ray, laboratory testing. This is essentially unremarkable. After IV hydration and Zofran and meclizine the patient is feeling much better. He is eager for discharge. He has no symptoms remaining. He's given return parameters. - Lab Data Result diagrams: 03/06/22 12:15 03/06/22 12:15 Lab Results 03/06/22 03/06/22 03/06/22 Range/Units 12:15 12:15 12:15 WBC 10.1 (3.8-10.6) k/uL RBC 5.36 (4.30-5.90) m/uL Hgb 15.2 (13.0-17.5) gm/dL Hct 44.1 (39.0-53.0) % MCV 82.3 (80.0-100.0) fL MCH 28.3 (25.0-35.0) pg MCHC 34.4 (31.0-37.0) g/dL RDW 13.9 (11.5-15.5) % Plt Count 195 (150-450) k/uL MPV 6.7 Neutrophils % 74 % Lymphocytes % 18 % Monocytes % 4 % Eosinophils % 2 % Basophils % 1 % Neutrophils # 7.4 (1.3-7.7) k/uL Lymphocytes # 1.9 (1.0-4.8) k/uL Monocytes # 0.4 (0-1.0) k/uL Eosinophils # 0.2 (0-0.7) k/uL Basophils # 0.1 (0-0.2) k/uL PT 10.8 (9.0-12.0) sec INR 1.0 (<1.2) APTT 24.9 (22.0-30.0) sec Sodium (137-145) mmol/L Potassium (3.5-5.1) mmol/L Chloride (98-107) mmol/L Carbon Dioxide (22-30) mmol/L Anion Gap mmol/L BUN (9-20) mg/dL Creatinine (0.66-1.25) mg/dL Est GFR (CKD-EPI)AfAm (>60 ml/min/1.73 sqM) Est GFR (CKD-EPI)NonAf (>60 ml/min/1.73 sqM) Glucose (74-99) mg/dL Plasma Lactic Acid Dario (0.7-2.0) mmol/L Calcium (8.4-10.2) mg/dL Magnesium (1.6-2.3) mg/dL Total Bilirubin (0.2-1.3) mg/dL AST (17-59) U/L ALT (4-49) U/L Alkaline Phosphatase (38-126) U/L Troponin I (0.000-0.034) ng/mL Total Protein (6.3-8.2) g/dL Albumin (3.5-5.0) g/dL Urine Color Light Yellow Urine Appearance Clear (Clear) Urine pH 5.0 (5.0-8.0) Ur Specific [place] 1.010 (1.001-1.035) Urine Protein Negative (Negative) Urine Glucose (UA) 4+ H (Negative) Urine Ketones Negative (Negative) Urine Blood Negative (Negative) Urine Nitrite Negative (Negative) Urine Bilirubin Negative (Negative) Urine Urobilinogen <2.0 (<2.0) mg/dL Ur Leukocyte Esterase Negative (Negative) 03/06/22 03/06/22 03/06/22 Range/Units 12:15 12:15 12:15 WBC (3.8-10.6) k/uL RBC (4.30-5.90) m/uL Hgb (13.0-17.5) gm/dL Hct (39.0-53.0) % MCV (80.0-100.0) fL MCH (25.0-35.0) pg MCHC (31.0-37.0) g/dL RDW (11.5-15.5) % Plt Count (150-450) k/uL MPV Neutrophils % % Lymphocytes % % Monocytes % % Eosinophils % % Basophils % % Neutrophils # (1.3-7.7) k/uL Lymphocytes # (1.0-4.8) k/uL Monocytes # (0-1.0) k/uL Eosinophils # (0-0.7) k/uL Basophils # (0-0.2) k/uL PT (9.0-12.0) sec INR (<1.2) APTT (22.0-30.0) sec Sodium 134 L (137-145) mmol/L Potassium 4.1 (3.5-5.1) mmol/L Chloride 103 (98-107) mmol/L Carbon Dioxide 23 (22-30) mmol/L Anion Gap 8 mmol/L BUN 14 (9-20) mg/dL Creatinine 0.91 (0.66-1.25) mg/dL Est GFR (CKD-EPI)AfAm >90 (>60 ml/min/1.73 sqM) Est GFR (CKD-EPI)NonAf 83 (>60 ml/min/1.73 sqM) Glucose 182 H (74-99) mg/dL Plasma Lactic Acid Dario 2.1 H* (0.7-2.0) mmol/L Calcium 9.1 (8.4-10.2) mg/dL Magnesium 1.7 (1.6-2.3) mg/dL Total Bilirubin 1.9 H (0.2-1.3) mg/dL AST 23 (17-59) U/L ALT 24 (4-49) U/L Alkaline Phosphatase 93 (38-126) U/L Troponin I <0.012 (0.000-0.034) ng/mL Total Protein 7.0 (6.3-8.2) g/dL Albumin 4.0 (3.5-5.0) g/dL Urine Color Urine Appearance (Clear) Urine pH (5.0-8.0) Ur Specific [place] (1.001-1.035) Urine Protein (Negative) Urine Glucose (UA) (Negative) Urine Ketones (Negative) Urine Blood (Negative) Urine Nitrite (Negative) Urine Bilirubin (Negative) Urine Urobilinogen (<2.0) mg/dL Ur Leukocyte Esterase (Negative) Disposition Clinical Impression: Vertigo Disposition: HOME SELF-CARE Condition: Fair Instructions (If sedation given, give patient instructions): Dizziness (ED) Additional Instructions: Please follow up with her primary care physician, please return with worsening or changing symptoms. Prescriptions: Meclizine [Antivert] 25 mg PO TID PRN #14 tab PRN Reason: Vertigo Is patient prescribed a controlled substance at d/c from ED?: No Referrals: None,Stated [Primary Care Provider] - 1-2 days Time of Disposition: 14:46
[2022-03-06 12:56] LABS: Appearance,Urine Clear (Clear); Bilirubin,Urine Negative (Negative); Blood,Urine Negative (Negative); Color,Urine Light Yellow; Glucose,Urine (UA) 4+ (Negative); Ketones,Urine Negative (Negative); Leukocyte Esterase,Urine Negative (Negative); Nitrite,Urine Negative (Negative); Protein,Urine Negative (Negative); Urobilinogen,Urine <2.0 mg/dL (<2.0)
--- NOTE | 2022-03-06 13:01 | CT ---
EXAMINATION TYPE: CT brain wo con DATE OF EXAM: 03/06/2022 COMPARISON: None HISTORY: c/o dizziness CT DLP: 1135.4 mGycm Automated exposure control for dose reduction was used. FINDINGS: Nasal septal deviation noted. Sinus demonstrate mild chronic sinusitis. Orbits are nasal septum noted . Craniocervical junction is maintained. Sella turcica normal. Soft tissue nodule adjacent to the lef t superior parietal bone measuring 1 cm. Nonspecific. There is mild to moderate generalized degenerative change. Low-attenuation periventricular white john er nonspecific but often associated with a white matter ischemia. No midline shift or mass effect. No acute hemorrhage. Calvarium IMPRESSION: DEGENERATIVE CHANGES NO ACUTE HEMORRHAGE OR MASS.
--- NOTE | 2022-03-06 13:28 | XR ---
EXAMINATION TYPE: XR chest 2V DATE OF EXAM: 03/06/2022 COMPARISON: NONE HISTORY: Weakness. TECHNIQUE: Frontal and lateral views of the chest are obtained. FINDINGS: Reticular interstitial prominence and low lung volumes bilaterally. No pleural effusion or pneumothorax seen bilaterally. Persistent cardiomegaly. Retrocardiac opacity consistent with moderat e to large size hiatal hernia. The osseous structures are intact. IMPRESSION: Cardiomegaly with perhaps mild interstitial edema though favor mild chronic parenchymal fibrosis.
[2022-03-06 13:38] LABS: Basophils # (A) 0.1 k/uL (0-0.2); Basophils % (A) 1 %; Eosinophils # (A) 0.2 k/uL (0-0.7); Eosinophils % (A) 2 %; HCT 44.1 % (39.0-53.0); HGB 15.2 gm/dL (13.0-17.5); Lymphocytes # (A) 1.9 k/uL (1.0-4.8); Lymphocytes % (A) 18 %; MCH 28.3 pg (25.0-35.0); MCHC 34.4 g/dL (31.0-37.0); MCV 82.3 fL (80.0-100.0); Mean Platelet Volume 6.7; Monocytes # (A) 0.4 k/uL (0-1.0); Monocytes % (A) 4 %; Neutrophils # (A) 7.4 k/uL (1.3-7.7); Neutrophils % (A) 74 %; Platelet Count 195 k/uL (150-450); RBC 5.36 m/uL (4.30-5.90); RDW 13.9 % (11.5-15.5); WBC 10.1 k/uL (3.8-10.6)
[2022-03-06 13:48] VITALS: BP 143/91; PULSE 75; RESP 16
[2022-03-06 13:50] LABS: Partial Thromboplastin Time 24.9 sec (22.0-30.0); Prothrombin Time 10.8 sec (9.0-12.0)
[2022-03-06 13:54] LABS: ALT 24 U/L (4-49); AST 23 U/L (17-59); African American GFR (CKD) >90 (>60 ml/min/1.73 sqM); Alkaline Phosphatase 93 U/L (38-126); Anion Gap 8 mmol/L; Blood Urea Nitrogen 14 mg/dL (9-20); Calcium 9.1 mg/dL (8.4-10.2); Carbon Dioxide 23 mmol/L (22-30); Chloride 103 mmol/L (98-107); Glucose 182 mg/dL (74-99); Magnesium 1.7 mg/dL (1.6-2.3); Non-African American GFR(CKD) 83 (>60 ml/min/1.73 sqM); Potassium 4.1 mmol/L (3.5-5.1); Sodium 134 mmol/L (137-145); Total Bilirubin 1.9 mg/dL (0.2-1.3)
[2022-03-06] MEDS ORDERED: MECLIZINE 12.5 MG TAB PO STA (14:02)
== END 2022-03-06 16:11 | disposition home or self-care (01) ==
LOC: EC 11:46
DX: R42 Dizziness and giddiness (principal); E11.9 Type 2 diabetes mellitus without complications; I10 Essential (primary) hypertension
CPT/HCPCS: 36415; 93005; 80053; 83605; 83735; 84484; 85025; 85610; 85730; 81003; 71046; 70450; 99285; 96374; 96375; 96361; J2405

== ENCOUNTER 2025-03-16 02:22 | Emergency (ER) | payer MEDICARE, OTHER ==
[2025-03-16 02:29] VITALS: TEMP 97.5
--- NOTE | 2025-03-16 03:01 | ED ---
SOB HPI - General Chief Complaint: Shortness of Breath Stated Complaint: ASHISH Time Seen by Provider: 03/16/25 02:31 Source: patient Mode of arrival: EMS Limitations: no limitations - History of Present Illness Initial Comments: This patient is 74-year-old man who arrives here from the [facility] to have evaluation for shortness of breath. The patient states that he had awakened feeling like he could not catch his breath. He had gone to bed feeling well. He states that after he was awake and sitting up his breathing did return to normal. He denies having fever or chills. No cough or sputum. No chest pain. Patient states that it seemed like his heart was briefly racing. MD Complaint: shortness of breath -: minutes(s) Severity scale (1-10): 0 Consistency: constant Improves With: upright position Worsens With: nothing Associated Symptoms: denies other symptoms Treatments Prior to Arrival: none - Related Data Home Oxygen Therapy: No Home Medications Medication Instructions Recorded Confirmed Acetaminophen [Tylenol] 500 - 1,000 mg PO Q6H PRN 01/19/20 01/19/20 B Complex W/C 1 tab PO DAILY@0800 01/19/20 01/19/20 Diclofenac Sodium [Voltaren Gel] 1 applic TOPICAL DAILY PRN 01/19/20 01/19/20 Famotidine [Pepcid] 20 mg PO DAILY@0800 01/19/20 01/19/20 Ibuprofen [Motrin] 600 mg PO TID PRN 01/19/20 01/19/20 Lactulose 10 gm PO BID@0800,199901/19/20 01/19/20 Menthol [Biofreeze] 1 applic TOPICAL QID PRN 01/19/20 01/19/20 Simvastatin [Zocor] 20 mg PO HS@199901/19/20 01/19/20 metFORMIN HCL 500 mg PO BID@0800,1700 01/19/20 01/19/20 Previous Rx's Medication Instructions Recorded Amoxicillin/Potassium Clav 1 tab PO Q12HR #14 tab 01/23/20 [Augmentin 875-125 Tablet] Losartan-Hctz 50-12.5 mg [Hyzaar 1 tab PO BID #60 01/23/20 50-12.5] Metoprolol Tartrate [Lopressor] 25 mg PO BID #60 tab 01/23/20 Tamsulosin [Flomax] 0.4 mg PO PC-SUPPER #30 cap.er.24h 01/23/20 Meclizine [Antivert] 25 mg PO TID PRN #14 tab 03/06/22 Allergies Allergy/AdvReac Type Severity Reaction Status Date / Time No Known Allergies Allergy Verified 03/16/25 02:29 Review of Systems ROS Statement: Those systems with pertinent positive or pertinent negative responses have been documented in the HPI. ROS Other: All systems not noted in ROS Statement are negative. Constitutional: Denies: fever, chills, weakness ENT: Denies: throat pain, congestion Respiratory: Reports: as per HPI, dyspnea. Denies: cough, wheezes Cardiovascular: Denies: chest pain, palpitations, dyspnea on exertion, orthopnea, edema Gastrointestinal: Denies: abdominal pain, vomiting, diarrhea, melena, hematochezia Genitourinary: Denies: dysuria Musculoskeletal: Denies: back pain Skin: Denies: rash Neurological: Denies: headache, weakness Past Medical History Past Medical History: Diabetes Mellitus, Hypertension Additional Past Medical History / Comment(s): gallstones History of Any Multi-Drug Resistant Organisms: None Reported Past Surgical History: Hernia Repair Past Anesthesia/Blood Transfusion Reactions: No Reported Reaction Past Psychological History: No Psychological Hx Reported Past Alcohol Use History: Heavy Past Drug Use History: None Reported - Past Family History Father Family Medical History: Cancer General Exam Limitations: no limitations General appearance: alert, in no apparent distress Head exam: Present: atraumatic, normocephalic Eye exam: Present: normal appearance. Absent: scleral icterus, conjunctival injection ENT exam: Present: normal oropharynx Neck exam: Present: normal inspection Respiratory exam: Present: normal lung sounds bilaterally. Absent: respiratory distress, wheezes, rales, rhonchi, stridor, accessory muscle use Cardiovascular Exam: Present: regular rate, normal rhythm, normal heart sounds. Absent: systolic murmur, diastolic murmur, rubs, gallop GI/Abdominal exam: Present: soft. Absent: distended, tenderness, guarding, rebound, rigid, mass Extremities exam: Present: normal inspection, normal capillary refill. Absent: pedal edema, calf tenderness Back exam: Present: normal inspection Neurological exam: Present: alert Skin exam: Present: warm, dry, intact, normal color. Absent: rash Course Vital Signs 03/16/25 03/16/25 03/16/25 02:24 03:38 04:22 Temperature 97.5 F L Pulse Rate 97 98 87 Respiratory 18 18 18 Rate Blood Pressure 160/90 148/79 139/72 O2 Sat by Pulse 95 96 97 Oximetry 03/16/25 03/16/25 03/16/25 05:31 06:41 07:28 Temperature Pulse Rate 90 96 80 Respiratory 16 17 20 Rate Blood Pressure 128/86 134/107 140/80 O2 Sat by Pulse 98 97 99 Oximetry 03/16/25 08:02 Temperature Pulse Rate 80 Respiratory 20 Rate Blood Pressure 140/80 O2 Sat by Pulse 99 Oximetry Medical Decision Making - Medical Decision Making The patient had chest x-ray that I interpreted as negative for acute infiltrate, pneumothorax, congestive heart failure The patient had CT angiogram of the chest that interpreted as negative for acute pulmonary embolism Was pt. sent in by a medical professional or institution (, PA, SILVER SOLDERER, urgent care, hospital, or half-way...) When possible be specific @ -[No] Did you speak to anyone other than the patient for history (EMS, parent, family, police, friend...)? What history was obtained from this source @ -[No] Did you review nursing and triage notes (agree or disagree)? Why? @ -[I reviewed and agree with nursing and triage notes] Were old charts reviewed (outside hosp., previous admission, EMS record, old EKG, old radiological studies, urgent care reports/EKG's, half-way records)? Report findings @ -[No old charts were reviewed] Differential Diagnosis (chest pain, altered mental status, abdominal pain women, abdominal pain men, vaginal bleeding, weakness, fever, dyspnea, syncope, headache, dizziness, GI bleed, back pain, seizure, CVA, palpatations, mental health, musculoskeletal)? @ -[Differential Dyspnea: Coronary syndrome, arrhythmia, tamponade, asthma, COPD, pulmonary embolism, pneumonia, pneumothorax, pulmonary effusion, anaphylaxis, diabetic ketoacidosis, flailed chest, pulmonary contusion, diaphragmatic rupture, anemia, neuromu scular, this is not meant to be an all-inclusive list. EKG interpreted by me (3pts min.). @ -[I interpreted as above] X-rays interpreted by me (1pt min.). @ -[I interpreted as above CT interpreted by me (1pt min.). @ -[I interpreted as above U/S interpreted by me (1pt. min.). @ -[None done] What testing was considered but not performed or refused? (CT, X-rays, U/S, labs)? Why? @ -[None] What meds were considered but not given or refused? Why? @ -[None] Did you discuss the management of the patient with other professionals (professionals i.e. , PA, SILVER SOLDERER, lab, RT, psych nurse, nursing home social worker, mobile developer, teacher, banking officer, nurse case management)? Give summary @ -[No] Was smoking cessation discussed for >3mins.? @ -[No] Was critical care preformed (if so, how long)? @ -[No] Were there social determinants of health that impacted care today? How? (Homelessness, low income, unemployed, alcoholism, drug addiction, transportation, low edu. Level, literacy, decrease access to med. care, [facility], rehab)? @ -[No] Was there de-escalation of care discussed even if they declined (Discuss DNR or withdrawal of care, Hospice)? DNR status @ -[No] What co-morbidities impacted this encounter? (DM, HTN, Smoking, COPD, CAD, Cancer, CVA, ARF, Chemo, Hep., AIDS, mental health diagnosis, sleep apnea, morbid obesity)? @ -[None] Was patient admitted / discharged? Hospital course, mention meds given and route, prescriptions, significant lab abnormalities, going to OR and other pertinent info. @ -[This patient is 74-year-old man in from the [place] home to have evaluation after he woke from sleep with shortness of breath. The patient's exam is benign. I do suspect that he had episode of sleep apnea and patient may require sleep study if he begins to have further episodes like this. Patient currently stable to have discharge back to his residence. Undiagnosed new problem with uncertain prognosis? @ -[No] Drug Therapy requiring intensive monitoring for toxicity (Heparin, Nitro, Insulin, Cardizem)? @ -[No] Were any procedures done? @ -[No] Diagnosis/symptom? @ -[Dyspnea, resolved Suspected episode of obstructive sleep apnea Acute, or Chronic, or Acute on Chronic? @ -[Acute Uncomplicated (without systemic symptoms) or Complicated (systemic symptoms)? @ -[Uncomplicated Side effects of treatment? @ -[No] Exacerbation, Progression, or Severe Exacerbation? @ -[No] Poses a threat to life or bodily function? How? (Chest pain, [place], [place], pneumonia, PE, COPD, DKA, ARF, appy, cholecystitis, CVA, Diverticulitis, Homicidal, Suicidal, threat to staff... and all critical care pts) @ -[No] All treatments are based on ideal body weight as in ED triage - Lab Data Result diagrams: 03/16/25 02:37 03/16/25 02:37 Lab Results 03/16/25 03/16/25 03/16/25 Range/Units 02:37 02:37 02:37 WBC 12.04 H (4.50-10.00) 10*3/uL RBC 5.46 (4.40-5.60) 10*6/uL Hgb 15.0 (13.0-17.0) g/dL Hct 43.5 (39.6-50.0) % MCV 79.7 L (80.0-97.0) fL MCH 27.5 (27.0-32.0) pg MCHC 34.5 (32.0-37.0) g/dL Plt Count 168 (140-440) 10*3/uL MPV 9.7 (9.5-12.2) fL Immature Gran % (Auto) 0.2 % Neutrophils % (Manual) 55 % Lymphocytes % (Manual) 42 % Monocytes % (Manual) 2 % Eosinophils % (Manual) 1 % Immature Gran # 0.03 (0.00-0.04) 10*3/uL Neutrophils # (Manual) 6.62 (1.3-7.7) k/uL Lymphocytes # (Manual) 5.06 H (1.0-4.8) k/uL Monocytes # (Manual) 0.24 (0-1.0) k/uL Eosinophils # (Manual) 0.12 (0-0.7) k/uL Nucleated RBCs 0 (0-0) /100 WBC Manual Slide Review Performed Reactive Lymphocytes Present PT 11.1 (10.0-12.5) sec INR 1.0 (<1.2) APTT 23.6 (22.0-30.0) sec D-Dimer 1.64 H (<0.60) mg/L FEU Sodium 131 L (137-145) mmol/L Potassium 4.4 (3.5-5.1) mmol/L Chloride 98 (98-107) mmol/L Carbon Dioxide 22 (22-30) mmol/L Anion Gap 11 mmol/L BUN 18 (9-20) mg/dL Creatinine 0.96 (0.66-1.25) mg/dL Est GFR (CKD-EPI)AfAm 89 (>60 ml/min/1.73 sqM) Est GFR (CKD-EPI)NonAf 77 (>60 ml/min/1.73 sqM) Glucose 156 H (74-99) mg/dL Plasma Lactic Acid Dario (0.7-2.0) mmol/L Calcium 10.3 H (8.4-10.2) mg/dL Total Bilirubin 2.4 H (0.2-1.3) mg/dL AST 26 (17-59) U/L ALT 22 (4-49) U/L Alkaline Phosphatase 96 (38-126) U/L Troponin I (0.000-0.034) ng/mL NT-Pro-B Natriuret Pep 70 pg/mL Total Protein 7.4 (6.3-8.2) g/dL Albumin 4.4 (3.5-5.0) g/dL 03/16/25 03/16/25 Range/Units 02:37 02:37 WBC (4.50-10.00) 10*3/uL RBC (4.40-5.60) 10*6/uL Hgb (13.0-17.0) g/dL Hct (39.6-50.0) % MCV (80.0-97.0) fL MCH (27.0-32.0) pg MCHC (32.0-37.0) g/dL Plt Count (140-440) 10*3/uL MPV (9.5-12.2) fL Immature Gran % (Auto) % Neutrophils % (Manual) % Lymphocytes % (Manual) % Monocytes % (Manual) % Eosinophils % (Manual) % Immature Gran # (0.00-0.04) 10*3/uL Neutrophils # (Manual) (1.3-7.7) k/uL Lymphocytes # (Manual) (1.0-4.8) k/uL Monocytes # (Manual) (0-1.0) k/uL Eosinophils # (Manual) (0-0.7) k/uL Nucleated RBCs (0-0) /100 WBC Manual Slide Review Reactive Lymphocytes PT (10.0-12.5) sec INR (<1.2) APTT (22.0-30.0) sec D-Dimer (<0.60) mg/L FEU Sodium (137-145) mmol/L Potassium (3.5-5.1) mmol/L Chloride (98-107) mmol/L Carbon Dioxide (22-30) mmol/L Anion Gap mmol/L BUN (9-20) mg/dL Creatinine (0.66-1.25) mg/dL Est GFR (CKD-EPI)AfAm (>60 ml/min/1.73 sqM) Est GFR (CKD-EPI)NonAf (>60 ml/min/1.73 sqM) Glucose (74-99) mg/dL Plasma Lactic Acid Dario 1.8 (0.7-2.0) mmol/L Calcium (8.4-10.2) mg/dL Total Bilirubin (0.2-1.3) mg/dL AST (17-59) U/L ALT (4-49) U/L Alkaline Phosphatase (38-126) U/L Troponin I <0.012 (0.000-0.034) ng/mL NT-Pro-B Natriuret Pep pg/mL Total Protein (6.3-8.2) g/dL Albumin (3.5-5.0) g/dL - EKG Data -: EKG Interpreted by [place] EKG shows normal: sinus rhythm, axis (Normal), intervals (Normal), QRS complexes (Normal), ST-T waves ( normal) Rate: normal (Rate 96 bpm) Interpretation: normal EKG Disposition Clinical Impression: Dyspnea, Apnea Disposition: HOME SELF-CARE Condition: Good Instructions (If sedation given, give patient instructions): Dyspnea (ED) Additional Instructions: As we discussed, follow-up with the medical researcher about having a sleep study.` Is patient prescribed a controlled substance at d/c from ED?: No Referrals: None,Stated [Primary Care Provider] - 1-2 days Angelic Hunt MD [STAFF PHYSICIAN] - 1-2 days
[2025-03-16 03:09] LABS: HCT 43.5 % (39.6-50.0); HGB 15.0 g/dL (13.0-17.0); MCH 27.5 pg (27.0-32.0); MCHC 34.5 g/dL (32.0-37.0); MCV 79.7 fL (80.0-97.0); Platelet Count 168 10*3/uL (140-440); RBC 5.46 10*6/uL (4.40-5.60); RDW 13.7 % (11.5-14.5); WBC 12.04 10*3/uL (4.50-10.00)
[2025-03-16 03:22] LABS: ALT 22 U/L (4-49); AST 26 U/L (17-59); African American GFR (CKD) 89 (>60 ml/min/1.73 sqM); Albumin 4.4 g/dL (3.5-5.0); Alkaline Phosphatase 96 U/L (38-126); Anion Gap 11 mmol/L; Blood Urea Nitrogen 18 mg/dL (9-20); Calcium 10.3 mg/dL (8.4-10.2); Carbon Dioxide 22 mmol/L (22-30); Chloride 98 mmol/L (98-107); Glucose 156 mg/dL (74-99); Non-African American GFR(CKD) 77 (>60 ml/min/1.73 sqM); Potassium 4.4 mmol/L (3.5-5.1); Sodium 131 mmol/L (137-145); Total Protein 7.4 g/dL (6.3-8.2)
[2025-03-16 03:31] LABS: NT-Pro-B-Type Natriuretic Pept 70 pg/mL
[2025-03-16 03:50] LABS: INR 1.0 (<1.2); Partial Thromboplastin Time 23.6 sec (22.0-30.0); Prothrombin Time 11.1 sec (10.0-12.5)
--- NOTE | 2025-03-16 03:57 | XR ---
EXAM: XR Chest, 2 Views CLINICAL HISTORY: ITS.REASON XR Reason: difficulty breathing TECHNIQUE: Frontal and lateral views of the chest. COMPARISON: XR Chest dated 03/06/2022, CT abdomen pelvis dated 01/18/2020 FINDINGS: Lungs: Unremarkable. No consolidation. Pleural space: Unremarkable. No pneumothorax. Heart: Unremarkable. No cardiomegaly. Mediastinum: Stable retrocardiac opacity/hiatal hernia. Normal mediastinal contour. Bones/joints: Unremarkable. No acute fracture. IMPRESSION: No evidence of acute cardiopulmonary disease.
--- NOTE | 2025-03-16 05:49 | CT ---
EXAM: CT Angiography Chest With Intravenous Contrast CLINICAL HISTORY: ITS.REASON CT Reason: dyspnea, possible PE TECHNIQUE: Axial computed tomographic angiography images of the chest with intravenous contrast. CTDI is 33.5 mGy and DLP is 585.5 mGy-cm. This CT exam was performed using one or more of the following dose reduction techniques: automated exposure control, adjustment of the mA and/or kV according to patient size, and/or use of iterative reconstruction technique. MIP reconstructed images were created and reviewed. COMPARISON: CT abdomen pelvis dated 01/18/2020, Chest x-ray dated 03/16/2025 FINDINGS: Pulmonary arteries: Unremarkable. No pulmonary embolism. Aorta: No acute findings. No thoracic aortic aneurysm. Lungs: Unremarkable. No mass. No consolidation. Pleural space: Unremarkable. No significant effusion. No pneumothorax. Heart: Coronary calcifications. No cardiomegaly. No significant pericardial effusion. No evidence of RV dysfunction. Mediastinum: Moderate hiatal hernia. Bones/joints: Chronic appearing deformity of the left upper scapula and distal clavicle, partially visualized. No acute fracture. No dislocation. Soft tissues: Unremarkable. Lymph nodes: Unremarkable. No enlarged lymph nodes. IMPRESSION: 1. No evidence of pulmonary embolism. 2. Moderate hiatal hernia.
[2025-03-16 07:29] VITALS: BP 140/80; PULSE 80; RESP 20
[2025-03-16 07:32] LABS: Eosinophils # (M) 0.12 k/uL (0-0.7); Lymphocytes # (M) 5.06 k/uL (1.0-4.8); Monocytes # (M) 0.24 k/uL (0-1.0); Neutrophils # (M) 6.62 k/uL (1.3-7.7); Neutrophils % (M) 55 %; Total Cells Counted 100
[2025-03-16] MEDS: ALPRAZolam 0.5 MG TAB PO STA (07:36)
== END 2025-03-16 08:03 | disposition home or self-care (01) ==
LOC: EC 02:22
DX: R06.00 Dyspnea, unspecified (principal); R06.81 Apnea, not elsewhere classified
CPT/HCPCS: 36415; 93005; 85379; 83880; 80053; 83605; 84484; 85025; 85610; 85730; 71046; 71275; 99285; Q9967